=== PATIENT | female | born 2000 | race Caucasian/White ===

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

== ENCOUNTER 2022-01-13 15:21 | Emergency (ER) | payer OTHER ==
[2022-01-13 15:32] VITALS: BP 143/79; PULSE 79; O2SAT 96
[2022-01-13] MEDS ORDERED: TORAdol 30 mg Injection IM ONE (15:51)
--- NOTE | 2022-01-13 16:05 | ERPHSYRPT ---
- History of Present Illness Time Seen by Provider: 01/13/22 15:30 Source: patient Exam Limitations: no limitations Patient Subjective Stated Complaint: pt here for pain to right ankle after falling through floor boards while working on floors, Triage Nursing Assessment: pt alert, resp easy, skin w/d/p.pt has abrasions to anlkle no swelling noted Physician History: Patient is a 21-year-old female presents to our ED with complaints of right ankle pain. Patient states her foot fell between 2 floor [place]. Patient slightly inverted her right foot. Patient's pain is mostly medial aspect of her right ankle. Pain described as an ache that is well localized. No radiation. Pain worse with movement and palpation. Pain improved with rest. Patient denies other injuries. No knee pain hip pain or back pain. No BHT or LOC. Patient took a dose of oral Tylenol prior to arrival. However she is still uncomfortable. Patient voices no other complaint or concerns at this time. Method of Injury: twisted Occurred: just prior to arrival Quality: constant Severity of Pain-Max: moderate Severity of Pain-Current: mild Lower Extremities Pain: ankle: right Modifying Factors: Improves With: movement Associated Symptoms: none Allergies/Adverse Reactions: No Known Drug Allergies Allergy (Verified 01/13/22 15:32) Home Medications: No Reportable Medications [No Reported Medications] 01/13/22 [History] Hx Tetanus, Diphtheria Vaccination/Date Given: Yes Hx Influenza Vaccination/Date Given: No Hx Pneumococcal Vaccination/Date Given: No Immunizations Up to Date: Yes Travel Risk - International Travel Have you traveled outside of the country in past 3 weeks: No - Coronavirus Screening Symptoms: Fever - Vaccine Status Have you recieved a Covid-19 vaccination: No - Review of Systems Constitutional: No Symptoms, No Fever, No Chills Eyes: No Symptoms Ears, Nose, & Throat: No Symptoms Respiratory: No Symptoms, No Cough, No Dyspnea Cardiac: No Symptoms, No Chest Pain, No Edema, No Syncope Abdominal/Gastrointestinal: No Symptoms, No Abdominal Pain, No Nausea, No Vomiting, No Diarrhea Genitourinary Symptoms: No Symptoms, No Dysuria Musculoskeletal: No Symptoms, No Back Pain, No Neck Pain Skin: No Symptoms, No Rash Neurological: No Symptoms, No Dizziness, No Focal Weakness, No Sensory Changes Psychological: No Symptoms Endocrine: No Symptoms Hematologic/Lymphatic: No Symptoms Immunological/Allergic: No Symptoms All Other Systems: Reviewed and Negative - Past Medical History Pertinent Past Medical History: Yes Neurological History: No Pertinent History ENT History: No Pertinent History Cardiac History: Arrhythmia, Other Respiratory History: No Pertinent History Endocrine Medical History: No Pertinent History Musculoskeletal History: No Pertinent History GI Medical History: No Pertinent History History: No Pertinent History Psycho-Social History: No Pertinent History Female Reproductive Disorders: No Pertinent History Other Medical History: atrial septal defect. 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 - Past Surgical History Past Surgical History: Yes Neuro Surgical History: No Pertinent History Cardiac: Cardiac Catheterization Respiratory: Other Gastrointestinal: Appendectomy Genitourinary: No Pertinent History Musculoskeletal: No Pertinent History Female Surgical History: Section Other Surgical History: nov 28--put in a device - Social History Smoking Status: Never smoker Exposure to second hand smoke: No Alcohol Use: None Drug Use: none Patient Lives Alone: No Significant Family History: no pertinent family hx - Female History Hx Last Menstrual Period: 7 months Hx Now: No - Nursing Vital Signs Nursing Vital Signs: Initial Vital Signs Temperature 97.0 F 01/13/22 15:27 Pulse Rate 79 01/13/22 15:27 Respiratory Rate 18 01/13/22 15:27 Blood Pressure 143/79 01/13/22 15:27 O2 Sat by Pulse Oximetry 96 01/13/22 15:27 Pain Scale Pain Intensity 8 - Physical Exam General Appearance: no apparent distress, alert Eyes, Ears, Nose, Throat Exam: moist mucous membranes Neck Exam: non-tender, supple Cardiovascular/Respiratory Exam: chest non-tender, normal breath sounds, regular rate/rhythm, no respiratory distress Gastrointestinal/Abdominal Exam: non-tender, guarding Back Exam: normal inspection, No vertebral tenderness Hips Exam: bilateral: non-tender, normal inspection, normal range of motion, no evidence of injury Legs Exam: bilateral leg: non-tender, normal inspection, normal range of motion, no evidence of injury Knees Exam: bilateral knee: non-tender, normal inspection, normal range of motion, no evidence of injury Ankle Exam: right ankle: pain, soft tissue tenderness, swelling, other (Superficial abrasion medial aspect left ankle. Tenderness along the Achilles tendon however negative Maxwell sign indicates intact Achilles tendon. Right lower extremity is neurovascular tact distally. Compartments are soft. Cap refill less than 2 seconds.), left ankle: non-tender, normal inspection, normal range of motion, no evidence of injury Foot Exam: bilateral foot: non-tender, normal inspection, normal range of motion, no evidence of injury Neuro/Tendon Exam: normal sensation, normal motor functions Mental Status Exam: alert, 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, cooperative Skin Exam: normal color, warm, dry SpO2 Interpretation: normal SpO2: 96 O2 Delivery: Room Air - Course Nursing assessment & vital signs reviewed: Yes - Radiology Exams Ankle X-ray Interpretation: Interpreted by me (No fractures or dislocations. Mild soft tissue swelling just proximal to the medial malleolus.) Ordered Tests: Active Orders 24 hr Category Date Time Status ANKLE (2V) Stat Exams 01/13/22 15:44 Taken Medication Summary Generic Name Dose Route Start Last Admin Trade Name Freq PRN Reason Stop Dose Admin Ketorolac Tromethamine 30 mg 01/13/22 15:51 Ketorolac Tromethamine 30 Mg/Ml Inj IM 01/13/22 15:52 STAT ONE - Progress Progress: improved Progress Note: Patient reassessed. She feels much better. Patient received Toradol for pain control. Patient received bilateral axillary crutches and an Dorian wrap. X-rays negative for fracture dislocation. Mild soft tissue swelling medial aspect of ankle. Patient agrees to follow-up with primary care doctor within 48 hours for evaluation. Patient understands that x-ray is not perfect. If pain and function do not improve in a week's time patient will require further imaging studies possible MRI. Portions of this note were created with voice recognition technology. There may be grammatical, spelling, punctuation or sound alike errors 01/13/22 16:13 Counseled pt/family regarding: diagnosis, need for follow-up, rad results - Departure Departure Disposition: Home Clinical Impression: Achilles tendon sprain, Skin abrasion, Ankle sprain Condition: Stable Critical Care Time: No Referrals: PHYLLIS MACIEL MD [Primary Care Provider] - Follow up/PCP as directed Additional Instructions: Discharge/Care Plan JADA BURRIS RASTA was seen on 01/13/22 in the Emergency Room. The patient was counseled regarding Diagnosis,Lab results, Imaging studies, need for follow up and when to return to the Emergency Room. Prescriptions given: Discharge Note I have spoken with the patient and/or caregivers. I have explained the patient's condition, diagnosis and treatment plan based on the information available to me at this time. I have answered the patient's and/or caregiver's questions and addressed any concerns. The patient and/or caregivers have as good understanding of the patient's diagnosis, condition and treatment plan as can be expected at this point. The vital signs have been stable. The patient's condition is stable and appropriate for discharge from the emergency department. The patient will pursue further outpatient evaluation with the primary care physician or other designated or consulting physician as outlined in the discharge instructions. The patient and/or caregivers are agreeable to this plan of care and follow-up instructions have been explained in detail. The patient and/or caregivers have received these instruction. The patient/and or caregivers are aware that any significant change in condition or worsening of symptoms should prompt an immediate return to this or the closest emergency department or call 911.
[2022-01-13] MEDS ORDERED: TORAdol 30 mg Injection ONE (16:06)
--- NOTE | 2022-01-13 16:18 | XRAY ---
Indication: Pain following fall. Comparison: None 2 view right ankle demonstrates normal bones, articulation, and soft tissues.
== END 2022-01-13 17:03 | disposition home or self-care (01) ==
LOC: ED 15:21
DX: S93.401A Sprain of unspecified ligament of right ankle, initial encounter (principal); S86.011A Strain of right Achilles tendon, initial encounter; W13.3XXA Fall through floor, initial encounter; Y93.H3 Activity, building and construction; M25.571 Pain in right ankle and joints of right foot
CPT/HCPCS: 73600; 96372; 99284; J1885

== ENCOUNTER 2022-05-29 19:22 | Emergency (ER) | payer OTHER ==
[2022-05-29] MEDS ORDERED: Sodium Chloride 0.9% 1000 ML 1,000 ML IV STA ×2 (20:07→20:54)
[2022-05-29] MEDS ORDERED: TORAdol 30 mg Injection IV ONE (20:08)
[2022-05-29] MEDS ORDERED: Sodium Chloride 0.9% 1000 ML 1,000 ML ONE ×2 (20:14→20:55)
[2022-05-29] MEDS ORDERED: TORAdol 30 mg Injection ONE (20:14)
[2022-05-29 20:32] LABS: Absolute Neutrophil Ct (ANC) 2.47 x10^3/uL (1.4-6.9); Basophil (Absolute #) 0.01 x10^3/uL (0-0.4); Eosinophil (Absolute #) 0 x10^3/uL (0-0.5); Hematocrit 41.6 % (35-47); Hemoglobin 13.9 g/dL (12.0-16.0); Lymphocyte (Absolute #) 0.26 x10^3/uL (1.0-4.6); Lymphocytes % 8.8 % (24.0-44.0); Mean Cell Volume 87.2 fL (78-100); Mean Corpuscular Hemoglobin 29.1 pg (26-32); Mean Corpuscular Hgb Concent. 33.4 g/dL (32-36); Mean Platelet Volume 11.2 fL (7.5-11.0); Monocyte (Absolute #) 0.22 x10^3/uL (0.0-1.3); Monocytes % 7.4 % (0.0-12.0); Neutrophil % 83.2 % (36.0-66.0); Platelet Count 243 x10^3/uL (150-450); Red Blood Count 4.77 x10^6/uL (4.1-5.4); Red Cell Distribution Width 13.4 % (11.5-14.0)
[2022-05-29 20:43] LABS: Epithelial Cells RARE /HPF (FEW); Mucus SLIGHT /HPF (NEGATIVE); RBC 0-2 /HPF (0-2); WBC 0-2 /HPF (0-5)
[2022-05-29 20:45] LABS: Appearance CLEAR (CLEAR); Bilirubin SMALL (NEGATIVE); Dipstick done @ ? MAIN LAB; Glucose 100 mg/dL (NEGATIVE); Ketones SMALL-15 (NEGATIVE); Nitrite NEGATIVE (NEGATIVE); Protein,Urine Dip NEGATIVE (Negative); RBC NEGATIVE Ery/ul (0-5); Urobilinogen >=8.0 mg/dL (0-1)
[2022-05-29 20:47] LABS: Urine Cultured Indicated? NO
[2022-05-29 20:48] LABS: ALBUMIN 4.2 g/dL (3.5-5.0); ALKALINE PHOSPHATASE 67 U/L (38-126); ANION GAP 12.9 MEQ/L (5-15); BLOOD UREA NITROGEN 8 mg/dL (7-17); CHLORIDE 103 mmol/L (98-107); Carbon Dioxide 21 mmol/L (22-30); Creatinine 1 0.79 mg/dL (0.52-1.04); EST GLOMERULAR FILTRATION RATE > 60.0 ML/MIN; Glucose 102 mg/dL (74-106); Potassium 3.4 mmol/L (3.5-5.1); SGOT/AST 24 U/L (14-36); SGPT/ALT 19 U/L (0-35); SODIUM 134 mmol/L (137-145); Total Protein 7.4 g/dL (6.3-8.2)
[2022-05-29] MEDS ORDERED: TYLENOL 325 MG PO STA (20:54)
[2022-05-29] MEDS ORDERED: TYLENOL 325 MG ONE (20:55)
[2022-05-29 21:09] LABS: INFLUENZA A NEGATIVE (NEGATIVE); INFLUENZA B NEGATIVE (NEGATIVE); RESPIRATORY SYNCTIAL VIRUS NEGATIVE (Negative); SARS-CoV-2 Xpert Express NEGATIVE (NEGATIVE)
--- NOTE | 2022-05-29 22:28 | ERPHSYRPT ---
- History of Present Illness Time Seen by Provider: 05/29/22 19:32 Source: patient Exam Limitations: no limitations Patient Subjective Stated Complaint: pt states " We got home from [place] today and I started running a fever around 2pm. My headache and body aches started a little later. I took a home COVID test today and it was negative." Triage Nursing Assessment: Pt ambulatory to bed by self, pt alert and oriented x3, pt c/o fever, body ache, headache that started around 1400. pt took tylenol 30 mins prior to arrival, pt's current temp is 100.8, pt currently has UTI which she is taking bactrim for, pt tachycardiac during triage, pt rating headache 08/02 Physician History: 22 years old female presented in the ER with chief complaint of fever and headache. Patient reports she recently returned from [place] and started to have headache yesterday, continuous, moderate to severe sharp throbbing all over and having some pain in the neck and this afternoon started to have fever with a T-max of 101.2 earlier today, took Tylenol and is better now. Has nausea but no vomiting. Denies chest chest pain palpitations or shortness of breath. No abdominal pain. No sore throat runny nose or congestion. Denies any known sick contact. Did home COVID-19 test and is negative. Denies focal numbness tingling weakness or visual disturbance. 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 Associated Symptoms: headache, muscle aches, nausea/vomiting, No abdominal pain, No chest pain, No confusion, No cough, No diaphoresis, No rash, No rhinorrhea, No shortness of breath, No sore throat, No stiff neck, No syncope, No weakness Allergies/Adverse Reactions: No Known Drug Allergies Allergy (Verified 05/29/22 19:27) Hx Tetanus, Diphtheria Vaccination/Date Given: Yes Hx Influenza Vaccination/Date Given: No Hx Pneumococcal Vaccination/Date Given: No Immunizations Up to Date: Yes Travel Risk - International Travel Have you traveled outside of the country in past 3 weeks: No - Coronavirus Screening Are you exhibiting any of the following symptoms?: Yes Symptoms: Fever, Headaches/Body Aches/Fatigue Close contact with a COVID-19 positive Pt in past 14-21 Days: No - Vaccine Status Have you recieved a Covid-19 vaccination: No - Review of Systems Constitutional: Fever, Chills, Fatigue, Weakness Eyes: No Symptoms Ears, Nose, & Throat: No Symptoms Respiratory: No Symptoms Cardiac: No Symptoms Abdominal/Gastrointestinal: Nausea Genitourinary Symptoms: No Symptoms Musculoskeletal: Neck Pain Skin: No Symptoms Neurological: Headache, No Dizziness, No Focal Weakness Psychological: No Symptoms Endocrine: No Symptoms Hematologic/Lymphatic: No Symptoms Immunological/Allergic: No Symptoms - Past Medical History Pertinent Past Medical History: Yes Neurological History: No Pertinent History ENT History: No Pertinent History Cardiac History: Arrhythmia, Other Respiratory History: No Pertinent History Endocrine Medical History: No Pertinent History Musculoskeletal History: No Pertinent History GI Medical History: No Pertinent History History: No Pertinent History Psycho-Social History: No Pertinent History Female Reproductive Disorders: No Pertinent History Other Medical History: atrial septal defect. 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 - Past Surgical History Past Surgical History: Yes Neuro Surgical History: No Pertinent History Cardiac: Cardiac Catheterization Respiratory: Other Gastrointestinal: Appendectomy Genitourinary: No Pertinent History Musculoskeletal: No Pertinent History Female Surgical History: Section Other Surgical History: nov 28--put in a device - Social History Smoking Status: Never smoker Exposure to second hand smoke: No Alcohol Use: None Drug Use: none Patient Lives Alone: No Significant Family History: no pertinent family hx - Female History Hx Last Menstrual Period: 05/24/2022 Hx Now: No - Nursing Vital Signs Nursing Vital Signs: Initial Vital Signs Temperature 100.8 F 05/29/22 19:29 Pulse Rate 147 H 05/29/22 19:29 Respiratory Rate 18 05/29/22 19:29 Blood Pressure 113/78 05/29/22 19:29 O2 Sat by Pulse Oximetry 97 05/29/22 19:29 Pain Scale Pain Intensity 2 - Physical Exam General Appearance: no apparent distress, alert Eye Exam: PERRL/EOMI, eyes nml inspection ENT Exam: normal ENT inspection, no apparent trauma, hearing grossly normal, TMs normal, pharynx normal Neck Exam: normal inspection, non-tender, supple, full range of motion, No meningismus Respiratory Exam: normal breath sounds, lungs clear Cardiovascular/Chest Exam: normal heart sounds, tachycardia Gastrointestinal/Abdominal Exam: soft, non tender, no distention Extremity Exam: non-tender, normal range of motion Neurologic Exam: alert, 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, 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, 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, normal mood/affect, nml cerebellar function, nml station & gait, sensation nml Skin Exam: normal color SpO2 Interpretation: normal SpO2: 97 O2 Delivery: Room Air Ordered Tests: Active Orders 24 hr Category Date Time 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 Care 05/29/22 20:07 Completed IV Insertion STAT Care 05/29/22 20:07 Completed CHEST 1 VIEW (PORTABLE) Stat Exams 05/29/22 20:07 Completed BLOOD CULTURE Stat Lab 05/29/22 20:27 Received CBC W DIFF Stat Lab 05/29/22 20:27 Completed CMP Stat Lab 05/29/22 20:27 Completed Lactic Acid Stat Lab 05/29/22 20:07 Completed MAG [MAGNESIUM] Stat Lab 05/29/22 20:27 Completed [place] Screen Stat Lab 05/29/22 20:08 Completed PROCALCITONIN Stat Lab 05/29/22 20:27 Completed UA W/RFX CULTURE Stat Lab 05/29/22 20:24 Completed Medication Summary Discontinued Medications Generic Name Dose Route Start Last Admin Trade Name Marisa PRN Reason Stop Dose Admin Acetaminophen 650 mg 05/29/22 20:54 05/29/22 20:56 Acetaminophen 325 Mg Tablet PO 05/29/22 20:55 650 mg STAT STA Administration Acetaminophen Confirm 05/29/22 20:55 Acetaminophen 325 Mg Tablet Administered 05/29/22 20:56 Dose 650 mg .ROUTE .STK-MED ONE Sodium Chloride 1,000 mls @ 999 mls/hr 05/29/22 20:07 05/29/22 21:15 Sodium Chloride 0.9% 1000 Ml IV 05/29/22 21:07 Infused .Q1H1M STA Infusion Sodium Chloride Confirm 05/29/22 20:14 Sodium Chloride 0.9% 1000 Ml Administered 05/29/22 20:15 Dose 1,000 mls @ ud .ROUTE .STK-MED ONE Sodium Chloride 1,000 mls @ 999 mls/hr 05/29/22 20:54 05/29/22 21:57 Sodium Chloride 0.9% 1000 Ml IV 05/29/22 21:54 Infused .Q1H1M STA Infusion Sodium Chloride Confirm 05/29/22 20:55 Sodium Chloride 0.9% 1000 Ml Administered 05/29/22 20:56 Dose 1,000 mls @ ud .ROUTE .STK-MED ONE Ceftriaxone Sodium/Dextrose 1 g in 50 mls @ 100 mls/hr 05/29/22 22:36 05/29/22 23:06 Rocephin 1 Gm-D5w 50 Ml Bag IV 05/29/22 23:05 Infused STAT STA Infusion Ceftriaxone Sodium/Dextrose Confirm 05/29/22 22:37 Rocephin 1 Gm-D5w 50 Ml Bag Administered 05/29/22 22:38 Dose 1 g in 50 mls @ ud IV .STK-MED ONE Ketorolac Tromethamine 30 mg 05/29/22 20:08 05/29/22 20:16 Ketorolac Tromethamine 30 Mg/Ml Inj IV 05/29/22 20:09 30 mg STAT ONE Administration Ketorolac Tromethamine Confirm 05/29/22 20:14 Ketorolac Tromethamine 30 Mg/Ml Inj Administered 05/29/22 20:15 Dose 30 mg .ROUTE .STK-MED ONE Magnesium Sulfate 1 gm 05/29/22 22:46 05/29/22 23:00 Magnesium Sulfate Injection IV 05/29/22 22:47 1 gm ONCE STA Administration Magnesium Sulfate Confirm 05/29/22 22:59 Magnesium Sulfate Injection Administered 05/29/22 23:00 Dose 1 gm .ROUTE .STK-MED ONE Lab/Rad Data: Laboratory Result Diagrams 05/29/22 20:27 05/29/22 20:27 Laboratory Results 05/29/22 05/29/22 05/29/22 Range/Units 21:32 20:27 20:27 WBC (4.0-10.5) x10^3/uL RBC (4.1-5.4) x10^6/uL Hgb (12.0-16.0) g/dL Hct (35-47) % MCV (78-100) fL MCH (26-32) pg MCHC (32-36) g/dL RDW (11.5-14.0) % Plt Count (150-450) x10^3/uL MPV (7.5-11.0) fL Gran % (36.0-66.0) % Immature Gran % (Auto) (0.00-0.4) % Nucleat RBC Rel Count (0.00-0.1) % Eos # (Auto) (0-0.5) x10^3/uL Immature Gran # (Auto) (0.00-0.03) x10^3u/L Absolute Lymphs (auto) (1.0-4.6) x10^3/uL Absolute Monos (auto) (0.0-1.3) x10^3/uL Absolute Nucleated RBC (0.00-0.01) x10^3u/L Lymphocytes % (24.0-44.0) % Monocytes % (0.0-12.0) % Eosinophils % (0.00-5.0) % Basophils % (0.0-0.4) % Absolute Granulocytes (1.4-6.9) x10^3/uL Basophils # (0-0.4) x10^3/uL Sodium (137-145) mmol/L Potassium (3.5-5.1) mmol/L Chloride (98-107) mmol/L Carbon Dioxide (22-30) mmol/L Anion Gap (5-15) MEQ/L BUN (7-17) mg/dL Creatinine (0.52-1.04) mg/dL Estimated GFR ML/MIN Glucose (74-106) mg/dL Lactic Acid (0.4-2.0) Calcium (8.4-10.2) mg/dL Magnesium 1.5 L (1.6-2.3) mg/dL Total Bilirubin (0.2-1.3) mg/dL AST (14-36) U/L ALT (0-35) U/L Alkaline Phosphatase (38-126) U/L Serum Total Protein (6.3-8.2) g/dL Albumin (3.5-5.0) g/dL Procalcitonin 0.155 H (0.030-0.080) ng/mL Urinalys Dipstick Clnc Urine Color (YELLOW) Urine Appearance (CLEAR) Urine pH (5-6) Ur Specific Walton (1.005-1.025) POC Urine Protein Conf (Negative) Urine Ketones (NEGATIVE) Urine Nitrite (NEGATIVE) Urine Bilirubin (NEGATIVE) Urine Urobilinogen (0-1) mg/dL Urine Leukocytes (NEGATIVE) Urine WBC (Auto) (0-5) /HPF Urine RBC (Auto) (0-2) /HPF U Epithel Cells (Auto) (FEW) /HPF Urine Bacteria (Auto) (NEGATIVE) /HPF Urine RBC (0-5) Abhishek/ul Urine Mucus (Auto) (NEGATIVE) /HPF Ur Culture Indicated? Urine Glucose (NEGATIVE) mg/dL Monoscreen (Negative) Influenza Type A Ag (NEGATIVE) Influenza Type B Ag (NEGATIVE) RSV (PCR) (Negative) SARS-CoV-2 (PCR) (NEGATIVE) Group A Strep Antibody NOT DETECTED (NEGATIVE) 05/29/22 05/29/22 05/29/22 Range/Units 20:27 20:27 20:26 WBC 3.0 L (4.0-10.5) x10^3/uL RBC 4.77 (4.1-5.4) x10^6/uL Hgb 13.9 (12.0-16.0) g/dL Hct 41.6 (35-47) % MCV 87.2 (78-100) fL MCH 29.1 (26-32) pg MCHC 33.4 (32-36) g/dL RDW 13.4 (11.5-14.0) % Plt Count 243 (150-450) x10^3/uL MPV 11.2 H (7.5-11.0) fL Gran % 83.2 H (36.0-66.0) % Immature Gran % (Auto) 0.3 (0.00-0.4) % Nucleat RBC Rel Count 0.0 (0.00-0.1) % Eos # (Auto) 0 (0-0.5) x10^3/uL Immature Gran # (Auto) 0.01 (0.00-0.03) x10^3u/L Absolute Lymphs (auto) 0.26 L (1.0-4.6) x10^3/uL Absolute Monos (auto) 0.22 (0.0-1.3) x10^3/uL Absolute Nucleated RBC 0.00 (0.00-0.01) x10^3u/L Lymphocytes % 8.8 L (24.0-44.0) % Monocytes % 7.4 (0.0-12.0) % Eosinophils % 0.0 (0.00-5.0) % Basophils % 0.3 (0.0-0.4) % Absolute Granulocytes 2.47 (1.4-6.9) x10^3/uL Basophils # 0.01 (0-0.4) x10^3/uL Sodium 134 L (137-145) mmol/L Potassium 3.4 L (3.5-5.1) mmol/L Chloride 103 (98-107) mmol/L Carbon Dioxide 21 L (22-30) mmol/L Anion Gap 12.9 (5-15) MEQ/L BUN 8 (7-17) mg/dL Creatinine 0.79 (0.52-1.04) mg/dL Estimated GFR > 60.0 ML/MIN Glucose 102 (74-106) mg/dL Lactic Acid (0.4-2.0) Calcium 9.0 (8.4-10.2) mg/dL Magnesium (1.6-2.3) mg/dL Total Bilirubin 0.80 (0.2-1.3) mg/dL AST 24 (14-36) U/L ALT 19 (0-35) U/L Alkaline Phosphatase 67 (38-126) U/L Serum Total Protein 7.4 (6.3-8.2) g/dL Albumin 4.2 (3.5-5.0) g/dL Procalcitonin (0.030-0.080) ng/mL Urinalys Dipstick Clnc Urine Color (YELLOW) Urine Appearance (CLEAR) Urine pH (5-6) Ur Specific [place] (1.005-1.025) POC Urine Protein Conf (Negative) Urine Ketones (NEGATIVE) Urine Nitrite (NEGATIVE) Urine Bilirubin (NEGATIVE) Urine Urobilinogen (0-1) mg/dL Urine Leukocytes (NEGATIVE) Urine WBC (Auto) (0-5) /HPF Urine RBC (Auto) (0-2) /HPF U Epithel Cells (Auto) (FEW) /HPF Urine Bacteria (Auto) (NEGATIVE) /HPF Urine RBC (0-5) Abhishek/ul Urine Mucus (Auto) (NEGATIVE) /HPF Ur Culture Indicated? Urine Glucose (NEGATIVE) mg/dL Monoscreen (Negative) Influenza Type A Ag NEGATIVE (NEGATIVE) Influenza Type B Ag NEGATIVE (NEGATIVE) RSV (PCR) NEGATIVE (Negative) SARS-CoV-2 (PCR) NEGATIVE (NEGATIVE) Group A Strep Antibody (NEGATIVE) 08/06/22 08/06/22 08/06/22 Range/Units 20:24 20:08 20:07 WBC (4.0-10.5) x10^3/uL RBC (4.1-5.4) x10^6/uL Hgb (12.0-16.0) g/dL Hct (35-47) % MCV (78-100) fL MCH (26-32) pg MCHC (32-36) g/dL RDW (11.5-14.0) % Plt Count (150-450) x10^3/uL MPV (7.5-11.0) fL Gran % (36.0-66.0) % Immature Gran % (Auto) (0.00-0.4) % Nucleat RBC Rel Count (0.00-0.1) % Eos # (Auto) (0-0.5) x10^3/uL Immature Gran # (Auto) (0.00-0.03) x10^3u/L Absolute Lymphs (auto) (1.0-4.6) x10^3/uL Absolute Monos (auto) (0.0-1.3) x10^3/uL Absolute Nucleated RBC (0.00-0.01) x10^3u/L Lymphocytes % (24.0-44.0) % Monocytes % (0.0-12.0) % Eosinophils % (0.00-5.0) % Basophils % (0.0-0.4) % Absolute Granulocytes (1.4-6.9) x10^3/uL Basophils # (0-0.4) x10^3/uL Sodium (137-145) mmol/L Potassium (3.5-5.1) mmol/L Chloride (98-107) mmol/L Carbon Dioxide (22-30) mmol/L Anion Gap (5-15) MEQ/L BUN (7-17) mg/dL Creatinine (0.52-1.04) mg/dL Estimated GFR ML/MIN Glucose (74-106) mg/dL Lactic Acid 1.1 (0.4-2.0) Calcium (8.4-10.2) mg/dL Magnesium (1.6-2.3) mg/dL Total Bilirubin (0.2-1.3) mg/dL AST (14-36) U/L ALT (0-35) U/L Alkaline Phosphatase (38-126) U/L Serum Total Protein (6.3-8.2) g/dL Albumin (3.5-5.0) g/dL Procalcitonin (0.030-0.080) ng/mL Urinalys Dipstick Clnc MAIN LAB Urine Color YELLOW (YELLOW) Urine Appearance CLEAR (CLEAR) Urine pH 8.0 (5-6) Ur Specific [place] 1.020 (1.005-1.025) POC Urine Protein Conf NEGATIVE (Negative) Urine Ketones SMALL-15 (NEGATIVE) Urine Nitrite NEGATIVE (NEGATIVE) Urine Bilirubin SMALL (NEGATIVE) Urine Urobilinogen >=8.0 (0-1) mg/dL Urine Leukocytes NEGATIVE (NEGATIVE) Urine WBC (Auto) 0-2 (0-5) /HPF Urine RBC (Auto) 0-2 (0-2) /HPF U Epithel Cells (Auto) RARE (FEW) /HPF Urine Bacteria (Auto) NONE (NEGATIVE) /HPF Urine RBC NEGATIVE (0-5) Abhishek/ul Urine Mucus (Auto) SLIGHT (NEGATIVE) /HPF Ur Culture Indicated? NO Urine Glucose 100 (NEGATIVE) mg/dL Monoscreen NEGATIVE (Negative) Influenza Type A Ag (NEGATIVE) Influenza Type B Ag (NEGATIVE) RSV (PCR) (Negative) SARS-CoV-2 (PCR) (NEGATIVE) Group A Strep Antibody (NEGATIVE) - Progress Progress: improved, re-examined Progress Note: 05/29/22 22:40 22 years old is evaluated for headache and fever with nausea. She is given fluid bolus x2 and her heart rate improved to mid 90s. Her headache is co mpletely resolved with Tylenol and Toradol. Does not have any nuchal rigidity. Chest x-ray negative for any acute cardiopulmonary findings reviewed by me, official report is pending. Has a white count of 3, chemistry profile grossly unremarkable except for mildly low magnesium and potassium for which she is getting replacement. Has elevated procalcitonin of 0.12. No UTI. No obvious source of infection available. Blood cultures are obtained. Has negative strep flu and COVID. Given a dose of Rocephin. Discussed with patient about possible meningitis and spinal tap which she refused as she had a spinal headache in the past with spinal anesthesia. She does understand the risk of not doing it and wants to try antibiotics first. We will continue with Omnicef to go home as patient is complaining of sore throat as well. Discussed signs symptoms of worsening needing return to ER which she seems understanding. 05/29/22 22:47 Counseled pt/family regarding: lab results, diagnosis, need for follow-up, rad results - Departure Departure Disposition: Home Clinical Impression: Fever, unknown origin, Sepsis Condition: Stable Critical Care Time: No Referrals: PHYLLIS MACIEL MD [Primary Care Provider] - Follow up/PCP as directed (In 2 days for reevaluation) Instructions: Fever, Adult (DC) Additional Instructions: Take Tylenol/ibuprofen alternate for fever/headache/body aches every 4 hours as needed. Drink plenty of fluids to keep yourself well-hydrated. Follow-up with primary care physician for reevaluation. Return to ER for persistent high-grade fever, difficulty movements of neck, intractable headache, nausea vomiting, visual disturbance etc. Prescriptions: Cefdinir [Omnicef 300 mg] 300 mg PO BID 7 Days #14 cap
[2022-05-29] MEDS ORDERED: ROCEPHIN 1 Gm-D5w 50 ml Bag** 1 G/50 ML IVPB IV STA (22:36)
[2022-05-29] MEDS ORDERED: ROCEPHIN 1 Gm-D5w 50 ml Bag** 1 G/50 ML IVPB IV ONE (22:37)
[2022-05-29] MEDS ORDERED: Magnesium Sulfate 1 GM/2 ML VIAL IV STA (22:46)
[2022-05-29] MEDS ORDERED: Magnesium Sulfate 1 GM/2 ML VIAL ONE (22:59)
[2022-05-29 23:07] VITALS: BP 107/67; PULSE 96
--- NOTE | 2022-05-30 07:25 | XRAY ---
Indication: Fever. Comparison: July 11, 2021 Portable chest again demonstrates normal heart, lungs, and bony thorax with incidental atrial septal repair.
[2022-05-30 20:50] VITALS: O2SAT 97
== END 2022-05-29 23:14 | disposition home or self-care (01) ==
LOC: ED 19:22
DX: A41.9 Sepsis, unspecified organism (principal); R50.9 Fever, unspecified; R51.9 Headache, unspecified; M54.2 Cervicalgia; R11.0 Nausea; Z28.310 Unvaccinated for COVID-19
CPT/HCPCS: 0241U; 36000; 36415; 71045; 80053; 81015; 83605; 83735; 84145; 85025; 86308; 87040; 87651; 93041; 96360; 96365; 96374; 96375; 99284; J0696; J1885; J3475; A9270-GY

== ENCOUNTER 2022-06-02 14:28 | Inpatient (IN) | payer OTHER ==
[2022-06-02] MEDS ORDERED: Sodium Chloride 0.9% 1000 ML 1,000 ML IV STA (14:46)
[2022-06-02 15:27] LABS: Hematocrit 44.4 % (35-47); Hemoglobin 14.1 g/dL (12.0-16.0); Mean Cell Volume 89.5 fL (78-100); Mean Corpuscular Hemoglobin 28.4 pg (26-32); Mean Corpuscular Hgb Concent. 31.8 g/dL (32-36); Mean Platelet Volume 11.5 fL (7.5-11.0); Platelet Count 84 x10^3/uL (150-450); Red Blood Count 4.96 x10^6/uL (4.1-5.4); White Blood Count 2.5 x10^3/uL (4.0-10.5)
[2022-06-02 15:33] LABS: INFLUENZA A NEGATIVE (NEGATIVE); INFLUENZA B NEGATIVE (NEGATIVE); RESPIRATORY SYNCTIAL VIRUS NEGATIVE (Negative); SARS-CoV-2 Xpert Express NEGATIVE (NEGATIVE)
[2022-06-02] MEDS: Sodium Chloride 0.9% 1000 ML 1,000 ML IV SCH (15:41)
[2022-06-02] MEDS: Zofran 4 MG/2 ML VIAL IV PRN (15:41)
[2022-06-02] MEDS: Hydromorphone 1 mg/ml Injection IV PRN (15:41)
[2022-06-02 15:47] LABS: BAND 6 % (0.0-2.0); Lymphocytes 11 % (24-44); Platelet Estimate DECREASED (NORMAL); Total Cells Counted 100; Toxic Granulation 1+
[2022-06-02 15:53] LABS: ALKALINE PHOSPHATASE 94 U/L (38-126); ANION GAP 13.7 MEQ/L (5-15); BLOOD UREA NITROGEN 15 mg/dL (7-17); CHLORIDE 100 mmol/L (98-107); Calcium 8.4 mg/dL (8.4-10.2); Carbon Dioxide 25 mmol/L (22-30); Creatinine 1 0.78 mg/dL (0.52-1.04); EST GLOMERULAR FILTRATION RATE > 60.0 ML/MIN; Glucose 76 mg/dL (74-106); Potassium 3.1 mmol/L (3.5-5.1); SGOT/AST 235 U/L (14-36); SGPT/ALT 176 U/L (0-35); SODIUM 135 mmol/L (137-145)
--- NOTE | 2022-06-02 16:23 | XRAY ---
Indication: Headache, vomiting, and fever. No known injury. Multiple contiguous axial images obtained through the head without contrast. Comparison: September 24, 2013 Normal appearing brain parenchyma, ventricles, and bony calvarium. Visualized paranasal sinuses and mastoid air cells are clear. Impression: Continued normal CT head without contrast exam.
[2022-06-02] MEDS ORDERED: Hydromorphone 1 mg/ml Injection IV ONE (17:32)
[2022-06-02] MEDS: Compazine 10 MG/2 ML IV PRN (18:35)
[2022-06-03] MEDS: TYLENOL 325 MG PO PRN ×4 (00:12→23:03)
[2022-06-03] MEDS: Sodium Chloride 0.9% 1000 ML 1,000 ML IV SCH ×2 (00:53→07:58)
[2022-06-03 06:30] LABS: Bacteria RARE /HPF (NEGATIVE)
[2022-06-03 06:31] LABS: Appearance CLEAR (CLEAR); Bilirubin SMALL (NEGATIVE); Dipstick done @ ? MAIN LAB; Glucose NEGATIVE (NEGATIVE); Ketones LARGE-80 (NEGATIVE); Nitrite NEGATIVE (NEGATIVE); Protein,Urine Dip 30 (Negative); RBC NEGATIVE Ery/ul (0-5); Specific Gravity 1.025 (1.005-1.025); Urobilinogen 1 mg/dL (0-1)
[2022-06-03 06:32] LABS: Urine Cultured Indicated? YES
[2022-06-03] MEDS: Hydromorphone 1 mg/ml Injection IV PRN ×4 (07:56→23:07)
[2022-06-03] MEDS: Compazine 10 MG/2 ML IV PRN ×2 (07:56→14:00)
[2022-06-03 07:58] LABS: Hematocrit 36.1 % (35-47); Hemoglobin 11.6 g/dL (12.0-16.0); Mean Corpuscular Hemoglobin 28.3 pg (26-32); Mean Corpuscular Hgb Concent. 32.1 g/dL (32-36); Platelet Count 69 x10^3/uL (150-450); Red Cell Distribution Width 14.2 % (11.5-14.0); White Blood Count 3.3 x10^3/uL (4.0-10.5)
[2022-06-03] MEDS ORDERED: Sodium Chloride 0.9% 1000 ML 1,000 ML IV STA (08:18)
[2022-06-03 08:19] LABS: ALBUMIN 2.5 g/dL (3.5-5.0); ALKALINE PHOSPHATASE 74 U/L (38-126); ANION GAP 11.4 MEQ/L (5-15); BLOOD UREA NITROGEN 10 mg/dL (7-17); CHLORIDE 103 mmol/L (98-107); Calcium 7.2 mg/dL (8.4-10.2); Carbon Dioxide 23 mmol/L (22-30); EST GLOMERULAR FILTRATION RATE > 60.0 ML/MIN; Glucose 84 mg/dL (74-106); Potassium 3.1 mmol/L (3.5-5.1); SGOT/AST 285 U/L (14-36); SGPT/ALT 165 U/L (0-35); SODIUM 135 mmol/L (137-145); Total Protein 5.2 g/dL (6.3-8.2)
--- NOTE | 2022-06-03 08:24 | PCM.NOTE ---
Date and Time: 06/03/22820 Subjective Assessment: patient c/o headache and left ear pain, vomiting is improved. pain was well controlled yesterday with dilaudid, didn't have any overnight. Objective Exam General Appearance: mild distress Neurologic Exam: alert, cooperative Respiratory Exam: normal breath sounds, lungs clear, No respiratory distress Cardiovascular Exam: regular rate/rhythm, normal heart sounds Gastrointestinal/Abdomen Exam: soft, No tenderness, No mass Extremity Exam: normal inspection, normal range of motion OBJECTIVE DATA Vital Signs: Vital Signs - 24 hr Temp Pulse Resp BP Pulse Ox 06/03/22 07:12 99.1 F 113 H 16 99/58 97 06/03/22 04:00 97.8 F 110 H 20 107/55 06/03/22 00:00 104.0 F 139 H 18 107/55 95 06/02/22 20:00 101.4 F 138 H 19 118/59 96 06/02/22 19:42 87 L 06/02/22 15:01 100.2 F 132 H 18 106/60 96 Pain Assessment - Last Documented Pain Intensity 8 Pain Scale Used 0-10 Pain Scale Intake and Output: Intake & Output 05/31/22 06/01/22 06/02/22 06/03/22 11:59 11:59 11:59 11:59 Intake Total 3250 Balance 3250 Weight 78.4 kg Lab Results: Lab Results-Last 24 Hours 06/02/22 06/02/22 06/02/22 Range/Units 06:31 14:55 15:22 WBC 2.5 L (4.0-10.5) x10^3/uL RBC 4.96 (4.1-5.4) x10^6/uL Hgb 14.1 (12.0-16.0) g/dL Hct 44.4 (35-47) % MCV 89.5 (78-100) fL MCH 28.4 (26-32) pg MCHC 31.8 L (32-36) g/dL RDW 14.0 (11.5-14.0) % Plt Count 84 L (150-450) x10^3/uL MPV 11.5 H (7.5-11.0) fL Segmented Neutrophils 83 H (36.0-66.0) % Band Neutrophils 6 H (0.0-2.0) % Lymphocytes (Manual) 11 L (24-44) % Toxic Granulation 1+ Platelet Estimate DECREASED (NORMAL) RBC Morphology NORMAL Sodium (137-145) mmol/L Potassium (3.5-5.1) mmol/L Chloride (98-107) mmol/L Carbon Dioxide (22-30) mmol/L Anion Gap (5-15) MEQ/L BUN (7-17) mg/dL Creatinine (0.52-1.04) mg/dL Estimated GFR ML/MIN Glucose (74-106) mg/dL Calcium (8.4-10.2) mg/dL Total Bilirubin (0.2-1.3) mg/dL AST (14-36) U/L ALT (0-35) U/L Alkaline Phosphatase (38-126) U/L Serum Total Protein (6.3-8.2) g/dL Albumin (3.5-5.0) g/dL Urinalys Dipstick Clnc MAIN LAB Urine Color YELLOW (YELLOW) Urine Appearance CLEAR (CLEAR) Urine pH 6.0 (5-6) Ur Specific [place] 1.025 (1.005-1.025) POC Urine Protein Conf 30 (Negative) Urine Ketones LARGE-80 (NEGATIVE) Urine Nitrite NEGATIVE (NEGATIVE) Urine Bilirubin SMALL (NEGATIVE) Urine Urobilinogen 1 (0-1) mg/dL Urine Leukocytes SMALL (NEGATIVE) Urine WBC (Auto) 16-25 (0-5) /HPF Urine RBC (Auto) 3-5 (0-2) /HPF U Epithel Cells (Auto) NONE (FEW) /HPF Urine Bacteria (Auto) RARE (NEGATIVE) /HPF Urine RBC NEGATIVE (0-5) Abhishek/ul Ur Culture Indicated? YES Urine Glucose NEGATIVE (NEGATIVE) mg/dL Influenza Type A Ag NEGATIVE (NEGATIVE) Influenza Type B Ag NEGATIVE (NEGATIVE) RSV (PCR) NEGATIVE (Negative) SARS-CoV-2 (PCR) NEGATIVE (NEGATIVE) 06/02/22 06/03/22 Range/Units 15:22 05:14 WBC 3.3 L (4.0-10.5) x10^3/uL RBC 4.10 (4.1-5.4) x10^6/uL Hgb 11.6 L (12.0-16.0) g/dL Hct 36.1 (35-47) % MCV 88.0 (78-100) fL MCH 28.3 (26-32) pg MCHC 32.1 (32-36) g/dL RDW 14.2 H (11.5-14.0) % Plt Count 69 L (150-450) x10^3/uL MPV 12.0 H (7.5-11.0) fL Segmented Neutrophils (36.0-66.0) % Band Neutrophils (0.0-2.0) % Lymphocytes (Manual) (24-44) % Toxic Granulation Platelet Estimate (NORMAL) RBC Morphology Sodium 135 L (137-145) mmol/L Potassium 3.1 L (3.5-5.1) mmol/L Chloride 100 (98-107) mmol/L Carbon Dioxide 25 (22-30) mmol/L Anion Gap 13.7 (5-15) MEQ/L BUN 15 (7-17) mg/dL Creatinine 0.78 (0.52-1.04) mg/dL Estimated GFR > 60.0 ML/MIN Glucose 76 (74-106) mg/dL Calcium 8.4 (8.4-10.2) mg/dL Total Bilirubin 1.70 H (0.2-1.3) mg/dL AST 235 H (14-36) U/L ALT 176 H (0-35) U/L Alkaline Phosphatase 94 (38-126) U/L Serum Total Protein 7.0 (6.3-8.2) g/dL Albumin 4.0 (3.5-5.0) g/dL Urinalys Dipstick Clnc Urine Color (YELLOW) Urine Appearance (CLEAR) Urine pH (5-6) Ur Specific [place] (1.005-1.025) POC Urine Protein Conf (Negative) Urine Ketones (NEGATIVE) Urine Nitrite (NEGATIVE) Urine Bilirubin (NEGATIVE) Urine Urobilinogen (0-1) mg/dL Urine Leukocytes (NEGATIVE) Urine WBC (Auto) (0-5) /HPF Urine RBC (Auto) (0-2) /HPF U Epithel Cells (Auto) (FEW) /HPF Urine Bacteria (Auto) (NEGATIVE) /HPF Urine RBC (0-5) Abhishek/ul Ur Culture Indicated? Urine Glucose (NEGATIVE) mg/dL Influenza Type A Ag (NEGATIVE) Influenza Type B Ag (NEGATIVE) RSV (PCR) (Negative) SARS-CoV-2 (PCR) (NEGATIVE) Radiology Exams: Radiology Procedures Category Date Time Status ABDOMEN AND PELVIS W/0 CONTRAS [CT] Routine Exams 06/02/22 17:31 Taken HEAD WITHOUT CONTRAST [CT] Stat Exams 06/02/22 14:48 Completed Assessment/Plan (1) Headache Current Visit: Yes Status: Acute Assessment & Plan: likely from hypovolemia, large ketones still present in u/a done this am after fluids, will give another 1L bolus and change fluids to K containing Code(s): R51.9 - HEADACHE, UNSPECIFIED (2) Fever, unknown origin Current Visit: No Status: Acute Assessment & Plan: add rocephin emperically, with leukopenia and thrombocytopenia in the context of elevated transaminases I strongly suspect a viral etiology, will await hepatitis profile and ebv/cmv titers. continue supportive care. (3) Nausea & vomiting Current Visit: No Status: Acute Code(s): R11.2 - NAUSEA WITH VOMITING, UNSPECIFIED
[2022-06-03] MEDS: Sodium Chloride 0.9% W/ 20 mEq KCl/LITER 1,000 ML IV SCH ×3 (08:29→20:32)
--- NOTE | 2022-06-03 08:37 | XRAY ---
Indication: Abdomen pain. Fever and vomiting. Multiple contiguous axial images obtained through the abdomen and pelvis without contrast. Comparison: None Lung bases demonstrate mild dependent atelectasis. No infiltrate or effusion. Heart not enlarged. Noncontrasted stomach and bowel loops appear nonobstructed. Appendectomy reported. 2.7 cm right ovary cyst. No free fluid/air. Diffuse fatty liver. Remaining liver, gallbladder, pancreas, spleen, adrenal glands, kidneys, ureters, bladder, uterus, and aorta are unremarkable for noncontrast exam. Osseous structures intact. No ventral or inguinal hernias. Impression: 1. Fatty liver and 2.7 cm dominant right ovary cyst. 2. Remaining CT abdomen/pelvis without contrast exam is negative.
[2022-06-03 08:58] LABS: Absolute Neutrophil Ct (ANC) 2.06 x10^3/uL (1.4-6.9); Basophil (Absolute #) 0.02 x10^3/uL (0-0.4); Eosinophil (Absolute #) 0 x10^3/uL (0-0.5); Hematocrit 36.4 % (35-47); Hemoglobin 11.9 g/dL (12.0-16.0); Lymphocyte (Absolute #) 0.57 x10^3/uL (1.0-4.6); Mean Cell Volume 88.3 fL (78-100); Mean Corpuscular Hemoglobin 28.9 pg (26-32); Mean Corpuscular Hgb Concent. 32.7 g/dL (32-36); Mean Platelet Volume 11.2 fL (7.5-11.0); Monocyte (Absolute #) 0.18 x10^3/uL (0.0-1.3); Monocytes % 6.3 % (0.0-12.0); Neutrophil % 72.3 % (36.0-66.0); Platelet Count 67 x10^3/uL (150-450); Red Blood Count 4.12 x10^6/uL (4.1-5.4); Red Cell Distribution Width 14.2 % (11.5-14.0); White Blood Count 2.9 x10^3/uL (4.0-10.5)
[2022-06-03 09:38] LABS: BAND 9 % (0.0-2.0); Lymphocytes 13 % (24-44); Total Cells Counted 100
[2022-06-03 09:39] LABS: ANISOCYTOSIS 1+; Platelet Estimate DECREASED (NORMAL); Toxic Granulation 1+
[2022-06-03] MEDS ORDERED: ROCEPHIN 1 Gm-D5w 50 ml Bag** 1 G/50 ML IVPB IV SCH (10:00)
[2022-06-03] MEDS: Tessalon Perles 100 MG PO PRN ×2 (11:00→20:04)
[2022-06-03] MEDS: Zofran 4 MG/2 ML VIAL IV PRN (11:42)
--- NOTE | 2022-06-03 12:14 | XRAY ---
Indication: Fever and cough 4 days. Comparison: May 29, 2022 PA/lateral chest demonstrates new diffuse left lung consolidating and nonconsolidating airspace disease. Also new bilateral interstitial edema and tiny bibasilar effusions without cardiomegaly.
[2022-06-03] MEDS: Zithromax 500 MG/ 250 ML NaCl Premix 500 MG/250 ML IVPB IV SCH (14:35)
[2022-06-04] MEDS: Sodium Chloride 0.9% W/ 20 mEq KCl/LITER 1,000 ML IV SCH (02:56)
[2022-06-04 04:12] LABS: INFLUENZA A NEGATIVE (NEGATIVE); INFLUENZA B NEGATIVE (NEGATIVE); RESPIRATORY SYNCTIAL VIRUS NEGATIVE (Negative); SARS-CoV-2 Xpert Express NEGATIVE (NEGATIVE)
[2022-06-04] MEDS: TYLENOL 325 MG PO PRN ×2 (04:20→10:25)
[2022-06-04 04:31] LABS: ALBUMIN 2.5 g/dL (3.5-5.0); ALKALINE PHOSPHATASE 127 U/L (38-126); ANION GAP 7.1 MEQ/L (5-15); BLOOD UREA NITROGEN 5 mg/dL (7-17); CHLORIDE 102 mmol/L (98-107); Calcium 7.2 mg/dL (8.4-10.2); Carbon Dioxide 28 mmol/L (22-30); Creatinine 1 0.62 mg/dL (0.52-1.04); EST GLOMERULAR FILTRATION RATE > 60.0 ML/MIN; Glucose 105 mg/dL (74-106); MAGNESIUM 1.6 mg/dL (1.6-2.3); Potassium 3.7 mmol/L (3.5-5.1); SGOT/AST 256 U/L (14-36); SGPT/ALT 162 U/L (0-35); SODIUM 134 mmol/L (137-145); Total Protein 5.2 g/dL (6.3-8.2)
[2022-06-04 05:01] LABS: Hematocrit 37.1 % (35-47); Hemoglobin 11.9 g/dL (12.0-16.0); Mean Cell Volume 88.3 fL (78-100); Mean Corpuscular Hemoglobin 28.3 pg (26-32); Mean Corpuscular Hgb Concent. 32.1 g/dL (32-36); Mean Platelet Volume 11.6 fL (7.5-11.0); Platelet Count 71 x10^3/uL (150-450); Red Cell Distribution Width 14.6 % (11.5-14.0); White Blood Count 4.2 x10^3/uL (4.0-10.5)
[2022-06-04 06:41] LABS: BAND 2 % (0.0-2.0); Lymphocytes 26 % (24-44); Monocyte 2 % (0.0-12.0); Platelet Estimate DECREASED (NORMAL); Total Cells Counted 100
[2022-06-04 06:42] LABS: ANISOCYTOSIS 1+; Toxic Granulation 1+
[2022-06-04] MEDS: Compazine 10 MG/2 ML IV PRN (06:42)
[2022-06-04] MEDS: Hydromorphone 1 mg/ml Injection IV PRN (06:42)
[2022-06-04 07:08] LABS: HBsAg Screen Negative (Negative); HCV Ab <0.1 s/co ratio (0.0-0.9); Hep A Ab, IgM Negative (Negative); Hep B Core Ab, IgM Negative (Negative)
[2022-06-04 07:58] LABS: Cytomegalovirus (CMV) Ab, IgG <0.60 U/mL (0.00-0.59); Cytomegalovirus (CMV) Ab, IgM <30.0 AU/mL (0.0-29.9)
[2022-06-04] MEDS ORDERED: NORCO 5/325 MG PO PRN (08:07)
[2022-06-04] MEDS ORDERED: Compazine 10 MG/2 ML IV PRN (08:07)
--- NOTE | 2022-06-04 08:13 | PCM.NOTE ---
Date and Time: 06/04/22810 Subjective Assessment: patient has increasing oxygen requirements overnight, she remains febrile but reports she feels better this morning. Objective Exam General Appearance: mild distress Neurologic Exam: alert, 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 Respiratory Exam: diminished breath sounds Cardiovascular Exam: regular rate/rhythm, normal heart sounds Gastrointestinal/Abdomen Exam: soft, No tenderness, No mass Extremity Exam: normal inspection, normal range of motion OBJECTIVE DATA Vital Signs: Vital Signs - 24 hr Temp Pulse Resp BP Pulse Ox 06/04/22 07:54 99.6 F 125 H 17 127/70 96 06/04/22 05:52 100.9 F 06/04/22 04:00 102.2 F 132 H 28 H 134/84 86 L 06/03/22 23:59 102.7 F 118 H 17 123/82 93 L 06/03/22 20:00 98.7 F 123 H 16 120/75 94 L 06/03/22 19:37 85 L 06/03/22 16:00 103.2 F 130 H 15 116/66 88 L 06/03/22 12:00 99.1 F 124 H 16 105/56 90 L Pain Assessment - Last Documented Pain Intensity 4 Pain Scale Used 0-10 Pain Scale Intake and Output: Intake & Output 06/01/22 06/02/22 06/03/22 06/04/22 11:59 11:59 11:59 11:59 Intake Total 3370 2582 Output Total 750 Balance 3370 1832 Weight 78.4 kg Lab Results: Lab Results-Last 24 Hours 06/03/22 06/03/22 06/03/22 Range/Units 05:14 05:14 05:14 WBC (4.0-10.5) x10^3/uL RBC (4.1-5.4) x10^6/uL Hgb (12.0-16.0) g/dL Hct (35-47) % MCV (78-100) fL MCH (26-32) pg MCHC (32-36) g/dL RDW (11.5-14.0) % Plt Count (150-450) x10^3/uL MPV (7.5-11.0) fL Gran % (36.0-66.0) % Immature Gran % (Auto) (0.00-0.4) % Nucleat RBC Rel Count (0.00-0.1) % Eos # (Auto) (0-0.5) x10^3/uL Immature Gran # (Auto) (0.00-0.03) x10^3u/L Absolute Lymphs (auto) (1.0-4.6) x10^3/uL Absolute Monos (auto) (0.0-1.3) x10^3/uL Absolute Nucleated RBC (0.00-0.01) x10^3u/L Lymphocytes % (24.0-44.0) % Monocytes % (0.0-12.0) % Eosinophils % (0.00-5.0) % Basophils % (0.0-0.4) % Absolute Granulocytes (1.4-6.9) x10^3/uL Segmented Neutrophils 78 H (36.0-66.0) % Band Neutrophils 9 H (0.0-2.0) % Lymphocytes (Manual) 13 L (24-44) % Monocytes (Manual) (0.0-12.0) % Basophils # (0-0.4) x10^3/uL Toxic Granulation 1+ Platelet Estimate DECREASED (NORMAL) RBC Morphology ABNORMAL Anisocytosis 1+ Sodium 135 L (137-145) mmol/L Potassium 3.1 L (3.5-5.1) mmol/L Chloride 103 (98-107) mmol/L Carbon Dioxide 23 (22-30) mmol/L Anion Gap 11.4 (5-15) MEQ/L BUN 10 (7-17) mg/dL Creatinine 0.70 (0.52-1.04) mg/dL Estimated GFR > 60.0 ML/MIN Glucose 84 (74-106) mg/dL Calcium 7.2 L (8.4-10.2) mg/dL Magnesium (1.6-2.3) mg/dL Total Bilirubin 1.30 (0.2-1.3) mg/dL AST 285 H (14-36) U/L ALT 165 H (0-35) U/L Alkaline Phosphatase 74 (38-126) U/L Serum Total Protein 5.2 L (6.3-8.2) g/dL Albumin 2.5 L (3.5-5.0) g/dL CMV IgG Ab (0.00-0.59) U/mL CMV IgM Ab (NORMA) (0.0-29.9) AU/mL EBV Capsid Ag IgG Ab EBV Capsid Ag IgM Ab Hepatitis A IgM Ab Negative (Negative) Hep Bs Antigen Negative (Negative) Hep B Core IgM Ab Negative (Negative) Hep C Ab Signal/Cutoff <0.1 (0.0-0.9) s/co ratio Hepatitis C Interp Comment (.) Monoscreen (Negative) Influenza Type A Ag (NEGATIVE) Influenza Type B Ag (NEGATIVE) RSV (PCR) (Negative) SARS-CoV-2 (PCR) (NEGATIVE) 06/03/22 06/03/22 06/03/22 Range/Units 07:45 08:50 08:50 WBC 2.9 L (4.0-10.5) x10^3/uL RBC 4.12 (4.1-5.4) x10^6/uL Hgb 11.9 L (12.0-16.0) g/dL Hct 36.4 (35-47) % MCV 88.3 (78-100) fL MCH 28.9 (26-32) pg MCHC 32.7 (32-36) g/dL RDW 14.2 H (11.5-14.0) % Plt Count 67 L (150-450) x10^3/uL MPV 11.2 H (7.5-11.0) fL Gran % 72.3 H (36.0-66.0) % Immature Gran % (Auto) 0.7 H (0.00-0.4) % Nucleat RBC Rel Count 0.0 (0.00-0.1) % Eos # (Auto) 0 (0-0.5) x10^3/uL Immature Gran # (Auto) 0.02 (0.00-0.03) x10^3u/L Absolute Lymphs (auto) 0.57 L (1.0-4.6) x10^3/uL Absolute Monos (auto) 0.18 (0.0-1.3) x10^3/uL Absolute Nucleated RBC 0.00 (0.00-0.01) x10^3u/L Lymphocytes % 20.0 L (24.0-44.0) % Monocytes % 6.3 (0.0-12.0) % Eosinophils % 0.0 (0.00-5.0) % Basophils % 0.7 (0.0-0.4) % Absolute Granulocytes 2.06 (1.4-6.9) x10^3/uL Segmented Neutrophils (36.0-66.0) % Band Neutrophils (0.0-2.0) % Lymphocytes (Manual) (24-44) % Monocytes (Manual) (0.0-12.0) % Basophils # 0.02 (0-0.4) x10^3/uL Toxic Granulation Platelet Estimate (NORMAL) RBC Morphology Anisocytosis Sodium (137-145) mmol/L Potassium (3.5-5.1) mmol/L Chloride (98-107) mmol/L Carbon Dioxide (22-30) mmol/L Anion Gap (5-15) MEQ/L BUN (7-17) mg/dL Creatinine (0.52-1.04) mg/dL Estimated GFR ML/MIN Glucose (74-106) mg/dL Calcium (8.4-10.2) mg/dL Magnesium 1.4 L (1.6-2.3) mg/dL Total Bilirubin (0.2-1.3) mg/dL AST (14-36) U/L ALT (0-35) U/L Alkaline Phosphatase (38-126) U/L Serum Total Protein (6.3-8.2) g/dL Albumin (3.5-5.0) g/dL CMV IgG Ab <0.60 (0.00-0.59) U/mL CMV IgM Ab (NORMA) <30.0 (0.0-29.9) AU/mL EBV Capsid Ag IgG Ab Pending EBV Capsid Ag IgM Ab Pending Hepatitis A IgM Ab (Negative) Hep Bs Antigen (Negative) Hep B Core IgM Ab (Negative) Hep C Ab Signal/Cutoff (0.0-0.9) s/co ratio Hepatitis C Interp (.) Monoscreen (Negative) Influenza Type A Ag (NEGATIVE) Influenza Type B Ag (NEGATIVE) RSV (PCR) (Negative) SARS-CoV-2 (PCR) (NEGATIVE) 06/03/22 06/04/22 06/04/22 Range/Units Unknown 03:30 03:30 WBC 4.2 (4.0-10.5) x10^3/uL RBC 4.20 (4.1-5.4) x10^6/uL Hgb 11.9 L (12.0-16.0) g/dL Hct 37.1 (35-47) % MCV 88.3 (78-100) fL MCH 28.3 (26-32) pg MCHC 32.1 (32-36) g/dL RDW 14.6 H (11.5-14.0) % Plt Count 71 L (150-450) x10^3/uL MPV 11.6 H (7.5-11.0) fL Gran % (36.0-66.0) % Immature Gran % (Auto) (0.00-0.4) % Nucleat RBC Rel Count (0.00-0.1) % Eos # (Auto) (0-0.5) x10^3/uL Immature Gran # (Auto) (0.00-0.03) x10^3u/L Absolute Lymphs (auto) (1.0-4.6) x10^3/uL Absolute Monos (auto) (0.0-1.3) x10^3/uL Absolute Nucleated RBC (0.00-0.01) x10^3u/L Lymphocytes % (24.0-44.0) % Monocytes % (0.0-12.0) % Eosinophils % (0.00-5.0) % Basophils % (0.0-0.4) % Absolute Granulocytes (1.4-6.9) x10^3/uL Segmented Neutrophils 70 H (36.0-66.0) % Band Neutrophils 2 (0.0-2.0) % Lymphocytes (Manual) 26 (24-44) % Monocytes (Manual) 2 (0.0-12.0) % Basophils # (0-0.4) x10^3/uL Toxic Granulation 1+ Platelet Estimate DECREASED (NORMAL) RBC Morphology ABNORMAL Anisocytosis 1+ Sodium 134 L (137-145) mmol/L Potassium 3.7 (3.5-5.1) mmol/L Chloride 102 (98-107) mmol/L Carbon Dioxide 28 (22-30) mmol/L Anion Gap 7.1 (5-15) MEQ/L BUN 5 L (7-17) mg/dL Creatinine 0.62 (0.52-1.04) mg/dL Estimated GFR > 60.0 ML/MIN Glucose 105 (74-106) mg/dL Calcium 7.2 L (8.4-10.2) mg/dL Magnesium 1.6 (1.6-2.3) mg/dL Total Bilirubin 1.30 (0.2-1.3) mg/dL AST 256 H (14-36) U/L ALT 162 H (0-35) U/L Alkaline Phosphatase 127 H (38-126) U/L Serum Total Protein 5.2 L (6.3-8.2) g/dL Albumin 2.5 L (3.5-5.0) g/dL CMV IgG Ab (0.00-0.59) U/mL CMV IgM Ab (NORMA) (0.0-29.9) AU/mL EBV Capsid Ag IgG Ab EBV Capsid Ag IgM Ab Hepatitis A IgM Ab (Negative) Hep Bs Antigen (Negative) Hep B Core IgM Ab (Negative) Hep C Ab Signal/Cutoff (0.0-0.9) s/co ratio Hepatitis C Interp (.) Monoscreen NEGATIVE (Negative) Influenza Type A Ag (NEGATIVE) Influenza Type B Ag (NEGATIVE) RSV (PCR) (Negative) SARS-CoV-2 (PCR) (NEGATIVE) 06/04/22 Range/Units 03:30 WBC (4.0-10.5) x10^3/uL RBC (4.1-5.4) x10^6/uL Hgb (12.0-16.0) g/dL Hct (35-47) % MCV (78-100) fL MCH (26-32) pg MCHC (32-36) g/dL RDW (11.5-14.0) % Plt Count (150-450) x10^3/uL MPV (7.5-11.0) fL Gran % (36.0-66.0) % Immature Gran % (Auto) (0.00-0.4) % Nucleat RBC Rel Count (0.00-0.1) % Eos # (Auto) (0-0.5) x10^3/uL Immature Gran # (Auto) (0.00-0.03) x10^3u/L Absolute Lymphs (auto) (1.0-4.6) x10^3/uL Absolute Monos (auto) (0.0-1.3) x10^3/uL Absolute Nucleated RBC (0.00-0.01) x10^3u/L Lymphocytes % (24.0-44.0) % Monocytes % (0.0-12.0) % Eosinophils % (0.00-5.0) % Basophils % (0.0-0.4) % Absolute Granulocytes (1.4-6.9) x10^3/uL Segmented Neutrophils (36.0-66.0) % Band Neutrophils (0.0-2.0) % Lymphocytes (Manual) (24-44) % Monocytes (Manual) (0.0-12.0) % Basophils # (0-0.4) x10^3/uL Toxic Granulation Platelet Estimate (NORMAL) RBC Morphology Anisocytosis Sodium (137-145) mmol/L Potassium (3.5-5.1) mmol/L Chloride (98-107) mmol/L Carbon Dioxide (22-30) mmol/L Anion Gap (5-15) MEQ/L BUN (7-17) mg/dL Creatinine (0.52-1.04) mg/dL Estimated GFR ML/MIN Glucose (74-106) mg/dL Calcium (8.4-10.2) mg/dL Magnesium (1.6-2.3) mg/dL Total Bilirubin (0.2-1.3) mg/dL AST (14-36) U/L ALT (0-35) U/L Alkaline Phosphatase (38-126) U/L Serum Total Protein (6.3-8.2) g/dL Albumin (3.5-5.0) g/dL CMV IgG Ab (0.00-0.59) U/mL CMV IgM Ab (NORMA) (0.0-29.9) AU/mL EBV Capsid Ag IgG Ab EBV Capsid Ag IgM Ab Hepatitis A IgM Ab (Negative) Hep Bs Antigen (Negative) Hep B Core IgM Ab (Negative) Hep C Ab Signal/Cutoff (0.0-0.9) s/co ratio Hepatitis C Interp (.) Monoscreen (Negative) Influenza Type A Ag NEGATIVE (NEGATIVE) Influenza Type B Ag NEGATIVE (NEGATIVE) RSV (PCR) NEGATIVE (Negative) SARS-CoV-2 (PCR) NEGATIVE (NEGATIVE) Radiology Exams: Radiology Procedures Category Date Time Status ABDOMEN AND PELVIS W/0 CONTRAS [CT] Routine Exams 06/02/22 17:31 Completed CHEST 1 VIEW (PORTABLE) Routine Exams 06/04/22 08:07 Stop Req CHEST 2 VIEWS (PA AND LAT) Routine Exams 06/03/22 11:30 Completed CHEST WITHOUT CONTRAST [CT] Urgent Exams 06/04/22 08:10 Ordered HEAD WITHOUT CONTRAST [CT] Stat Exams 06/02/22 14:48 Completed Multi-Disciplinary Progress Notes: Multi-Disciplinary Progress Notes 06/03/22 19:39 Respiratory Note by Kumar Powell PT SATS WERE 85% ON RA, PLACED PT ON 2LPM NC AND SATS RECOVERED TO 93%. PT REMAINS ON 2LPM AT THIS TIME. Initialized on 06/03/22 19:39 - END OF NOTE Assessment/Plan (1) Pneumonia Current Visit: Yes Status: Acute Assessment & Plan: on rocephin and zithromax currently, patient remains febrile and acutely ill. spoke with Dr Carmona via phone and he will see today. will d/c IV fluids due to swelling and she is urinating well now and appears rehydrated. plan to change to zosyn due to concern for possible aspiration, appreciate pulm input Code(s): J18.9 - PNEUMONIA, UNSPECIFIED ORGANISM (2) Headache Current Visit: Yes Status: Acute Code(s): R51.9 - HEADACHE, UNSPECIFIED (3) Fever, unknown origin Current Visit: No Status: Acute (4) Nausea & vomiting Current Visit: No Status: Acute Code(s): R11.2 - NAUSEA WITH VOMITING, UNSPECIFIED
--- NOTE | 2022-06-04 09:22 | XRAY ---
Indication: Nausea, vomiting, cough, fever, and increased oxygen need. Multiple contiguous axial images obtained through the chest without contrast. Comparison: None Lungs demonstrates diffuse bilateral patchy consolidating/nonconsolidating airspace disease, interstitial edema, and small bilateral effusions. Heart not enlarged with prior atrial septal repair. Bony thorax intact. Limited upper abdomen demonstrates fatty liver. Impression: 1. Diffuse bilateral consolidating/nonconsolidating airspace disease with small bilateral effusions. 2. Incidental fatty liver and prior cardiac surgery.
[2022-06-04] MEDS: Monistat 7 VG SCH (11:13)
[2022-06-04] MEDS: Zithromax 500 MG/ 250 ML NaCl Premix 500 MG/250 ML IVPB IV SCH (11:13)
[2022-06-04] MEDS: PIPERACILLIN/TAZOBACTAM 3.375 GM in Sodium Chloride 100ML MINI-BAG PLUS 100 ML IV SCH ×3 (12:30→23:04)
[2022-06-04] MEDS ORDERED: MOTRIN 600 MG PO PRN (13:38)
[2022-06-04] MEDS: Diflucan 100 MG PO SCH (16:39)
[2022-06-04 19:18] LABS: EBV Ab VCA, IgG 40.9 U/mL (0.0-17.9); EBV Ab VCA, IgM <36.0 U/mL (0.0-35.9)
[2022-06-05 04:43] LABS: Hemoglobin 11.6 g/dL (12.0-16.0); Mean Cell Volume 85.8 fL (78-100); Mean Corpuscular Hemoglobin 28.4 pg (26-32); Mean Corpuscular Hgb Concent. 33.1 g/dL (32-36); Mean Platelet Volume 11.7 fL (7.5-11.0); Platelet Count 100 x10^3/uL (150-450); Red Blood Count 4.08 x10^6/uL (4.1-5.4); Red Cell Distribution Width 14.7 % (11.5-14.0); White Blood Count 5.5 x10^3/uL (4.0-10.5)
[2022-06-05 05:08] LABS: ALBUMIN 2.6 g/dL (3.5-5.0); ALKALINE PHOSPHATASE 134 U/L (38-126); ANION GAP 4.9 MEQ/L (5-15); BLOOD UREA NITROGEN 5 mg/dL (7-17); CHLORIDE 101 mmol/L (98-107); Calcium 7.8 mg/dL (8.4-10.2); Carbon Dioxide 34 mmol/L (22-30); Creatinine 1 0.54 mg/dL (0.52-1.04); EST GLOMERULAR FILTRATION RATE > 60.0 ML/MIN; Glucose 100 mg/dL (74-106); MAGNESIUM 1.9 mg/dL (1.6-2.3); Potassium 3.5 mmol/L (3.5-5.1); SGOT/AST 249 U/L (14-36); SGPT/ALT 147 U/L (0-35); SODIUM 136 mmol/L (137-145); Total Protein 5.4 g/dL (6.3-8.2)
[2022-06-05] MEDS: PIPERACILLIN/TAZOBACTAM 3.375 GM in Sodium Chloride 100ML MINI-BAG PLUS 100 ML IV SCH ×3 (05:21→18:56)
[2022-06-05 06:49] LABS: BAND 3 % (0.0-2.0); Eosinophil 1 % (0.00-3.0); Lymphocytes 11 % (24-44); Monocyte 8 % (0.0-12.0); Total Cells Counted 100
[2022-06-05 06:50] LABS: Platelet Estimate NORMAL (NORMAL)
[2022-06-05] MEDS ORDERED: Diflucan 100 MG PO SCH (10:00)
[2022-06-05] MEDS: Diflucan 100 MG PO SCH (10:17)
[2022-06-05] MEDS: Zithromax 500 MG/ 250 ML NaCl Premix 500 MG/250 ML IVPB IV SCH (10:19)
--- NOTE | 2022-06-05 13:44 | PCM.NOTE ---
Date and Time: 06/05/22 1340 Subjective Assessment: Pt is feeling much better. No appetite, but drinking. Didn't get along well with night nurse and considered leaving AMA at one point. Was started on zosyn yesterday. - Review of Systems Constitutional: No Fever Respiratory: Cough Objective Exam General Appearance: no apparent distress, alert, other (appears fatigued) Neurologic Exam: 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, cooperative Skin Exam: normal color, warm, dry, No rash Eye Exam: eyes nml inspection Ears, Nose, Throat Exam: moist mucous membranes Neck Exam: normal inspection Respiratory Exam: lungs clear, diminished breath sounds (good air exchange), No crackles/rales, No rhonchi, No wheezing Cardiovascular Exam: regular rate/rhythm, normal heart sounds, No murmur Gastrointestinal/Abdomen Exam: soft, normal bowel sounds, No tenderness, No distention, No mass, No guarding, No rebound Extremity Exam: normal inspection, No pedal edema, No swelling Back Exam: normal inspection, No rash OBJECTIVE DATA Vital Signs: Vital Signs - 24 hr Temp Pulse Resp BP Pulse Ox 06/05/22 12:00 98.4 F 115 H 19 124/75 96 06/05/22 09:03 93 L 06/05/22 07:58 98.7 F 113 H 19 116/71 93 L 06/05/22 04:00 98.7 F 116 H 21 116/72 92 L 06/04/22 22:02 98.6 F 112 H 18 126/76 95 06/04/22 21:25 95 06/04/22 16:31 98.3 F 114 H 21 116/75 95 06/04/22 14:00 100 F 108 H 18 92 L Pain Assessment - Last Documented Pain Intensity 0 Pain Scale Used FLACC Intake and Output: Intake & Output 06/03/22 06/04/22 06/05/22 06/06/22 11:59 11:59 11:59 11:59 Intake Total 3370 3062 1580 Output Total 1050 1001 Balance 3372011 579 Weight 78.4 kg Lab Results: Lab Results-Last 24 Hours 06/03/22 06/04/22 06/05/22 Range/Units 08:50 05:00 04:20 WBC 5.5 (4.0-10.5) x10^3/uL RBC 4.08 L (4.1-5.4) x10^6/uL Hgb 11.6 L (12.0-16.0) g/dL Hct 35.0 (35-47) % MCV 85.8 (78-100) fL MCH 28.4 (26-32) pg MCHC 33.1 (32-36) g/dL RDW 14.7 H (11.5-14.0) % Plt Count 100 L D (150-450) x10^3/uL MPV 11.7 H (7.5-11.0) fL Segmented Neutrophils 77 H (36.0-66.0) % Band Neutrophils 3 H (0.0-2.0) % Lymphocytes (Manual) 11 L (24-44) % Monocytes (Manual) 8 (0.0-12.0) % Eosinophils (Manual) 1 (0.00-3.0) % Platelet Estimate NORMAL (NORMAL) RBC Morphology NORMAL Sodium (137-145) mmol/L Potassium (3.5-5.1) mmol/L Chloride (98-107) mmol/L Carbon Dioxide (22-30) mmol/L Anion Gap (5-15) MEQ/L BUN (7-17) mg/dL Creatinine (0.52-1.04) mg/dL Estimated GFR ML/MIN Glucose (74-106) mg/dL Calcium (8.4-10.2) mg/dL Magnesium (1.6-2.3) mg/dL Total Bilirubin (0.2-1.3) mg/dL AST (14-36) U/L ALT (0-35) U/L Alkaline Phosphatase (38-126) U/L Serum Total Protein (6.3-8.2) g/dL Albumin (3.5-5.0) g/dL Serum , Qual NEGATIVE (Negative) EBV Capsid Ag IgG Ab 40.9 H (0.0-17.9) U/mL EBV Capsid Ag IgM Ab <36.0 (0.0-35.9) U/mL 06/05/22 Range/Units 04:20 WBC (4.0-10.5) x10^3/uL RBC (4.1-5.4) x10^6/uL Hgb (12.0-16.0) g/dL Hct (35-47) % MCV (78-100) fL MCH (26-32) pg MCHC (32-36) g/dL RDW (11.5-14.0) % Plt Count (150-450) x10^3/uL MPV (7.5-11.0) fL Segmented Neutrophils (36.0-66.0) % Band Neutrophils (0.0-2.0) % Lymphocytes (Manual) (24-44) % Monocytes (Manual) (0.0-12.0) % Eosinophils (Manual) (0.00-3.0) % Platelet Estimate (NORMAL) RBC Morphology Sodium 136 L (137-145) mmol/L Potassium 3.5 (3.5-5.1) mmol/L Chloride 101 (98-107) mmol/L Carbon Dioxide 34 H (22-30) mmol/L Anion Gap 4.9 L (5-15) MEQ/L BUN 5 L (7-17) mg/dL Creatinine 0.54 (0.52-1.04) mg/dL Estimated GFR > 60.0 ML/MIN Glucose 100 (74-106) mg/dL Calcium 7.8 L (8.4-10.2) mg/dL Magnesium 1.9 (1.6-2.3) mg/dL Total Bilirubin 1.10 (0.2-1.3) mg/dL AST 249 H (14-36) U/L ALT 147 H (0-35) U/L Alkaline Phosphatase 134 H (38-126) U/L Serum Total Protein 5.4 L (6.3-8.2) g/dL Albumin 2.6 L (3.5-5.0) g/dL Serum , Qual (Negative) EBV Capsid Ag IgG Ab (0.0-17.9) U/mL EBV Capsid Ag IgM Ab (0.0-35.9) U/mL Radiology Exams: Radiology Procedures Category Date Time Status CHEST WITHOUT CONTRAST [CT] Urgent Exams 06/04/22 08:10 Completed Assessment/Plan (1) Pneumonia Current Visit: Yes Status: Acute Qualifiers: Pneumonia type: due to unspecified organism Laterality: bilateral Lung location: unspecified part of lung Qualified Code(s): J18.9 - Pneumonia, unspecified organism Assessment & Plan: She is now on 3L O2 per [place], but is feeling better. Day #2 zosyn. I discussed with pt that it's important she stay, and I cannot promise she will go home tomorrow. She has a 5 yr old at home that she is concerned about. The day nurse discussed the nursing situation and getting a different nurse assignment tonight, so pt feels better about that. Code(s): J18.9 - PNEUMONIA, UNSPECIFIED ORGANISM
[2022-06-05] MEDS: Zofran 4 MG/2 ML VIAL IV PRN (14:35)
[2022-06-05] MEDS: Lactated Ringers 1,000 ML IV SCH (14:52)
[2022-06-05] MEDS: Monistat 7 VG SCH (20:51)
[2022-06-06] MEDS: PIPERACILLIN/TAZOBACTAM 3.375 GM in Sodium Chloride 100ML MINI-BAG PLUS 100 ML IV SCH ×5 (00:20→23:39)
[2022-06-06 05:05] LABS: Hematocrit 33.6 % (35-47); Mean Cell Volume 85.3 fL (78-100); Mean Corpuscular Hemoglobin 27.9 pg (26-32); Mean Corpuscular Hgb Concent. 32.7 g/dL (32-36); Mean Platelet Volume 11.2 fL (7.5-11.0); Platelet Count 121 x10^3/uL (150-450); Red Blood Count 3.94 x10^6/uL (4.1-5.4); Red Cell Distribution Width 14.6 % (11.5-14.0); White Blood Count 4.3 x10^3/uL (4.0-10.5)
[2022-06-06] MEDS: Lactated Ringers 1,000 ML IV SCH ×2 (05:17→23:40)
[2022-06-06 05:27] LABS: ANION GAP 7.4 MEQ/L (5-15); BLOOD UREA NITROGEN 5 mg/dL (7-17); CHLORIDE 101 mmol/L (98-107); Carbon Dioxide 30 mmol/L (22-30); Creatinine 1 0.56 mg/dL (0.52-1.04); EST GLOMERULAR FILTRATION RATE > 60.0 ML/MIN; Glucose 92 mg/dL (74-106); Potassium 3.4 mmol/L (3.5-5.1); SODIUM 135 mmol/L (137-145)
[2022-06-06 06:48] LABS: BAND 1 % (0.0-2.0); Lymphocytes 35 % (24-44); Monocyte 2 % (0.0-12.0); Platelet Estimate NORMAL (NORMAL); Total Cells Counted 100
[2022-06-06 09:57] LABS: ALBUMIN 2.6 g/dL (3.5-5.0); BILIRUBIN,TOTAL 0.9 mg/dL (0.2-1.3); Direct Bilirubin 0.3 mg/dL (0.0-0.4); Total Protein 5.5 g/dL (6.3-8.2)
[2022-06-06] MEDS: Diflucan 100 MG PO SCH (10:55)
[2022-06-06] MEDS: Zithromax 500 MG/ 250 ML NaCl Premix 500 MG/250 ML IVPB IV SCH (10:55)
[2022-06-06] MEDS: Zofran 4 MG/2 ML VIAL IV PRN (12:36)
[2022-06-06] MEDS ORDERED: solu-MEDROL 40 MG, Sterile H2O 10 ml 1 ML IV SCH ×2 (14:00)
--- NOTE | 2022-06-06 14:55 | PCM.NOTE ---
Date and Time: 06/06/22 1450 Subjective Assessment: Pt feels even better than she did yesterday. When she uses the incentive spirometer, it makes her cough/vomit up lots of yellow sputum. Afebrile x 24 hrs. Starting to get her appetite back. Her oxygen tubing came disconnected from the wall and her O2 sat dropped to 73%. - Review of Systems Constitutional: No Fever Respiratory: Cough, Short Of Breath Objective Exam General Appearance: no apparent distress, alert Neurologic Exam: 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, cooperative Skin Exam: normal color, warm, dry, No rash Eye Exam: eyes nml inspection Ears, Nose, Throat Exam: moist mucous membranes Neck Exam: normal inspection Respiratory Exam: normal breath sounds, crackles/rales (mild, bibasilar), No rhonchi, No wheezing Cardiovascular Exam: regular rate/rhythm, normal heart sounds, No murmur Gastrointestinal/Abdomen Exam: normal bowel sounds, No distention Extremity Exam: normal inspection, No pedal edema, No swelling Back Exam: normal inspection, No rash OBJECTIVE DATA Vital Signs: Vital Signs - 24 hr Temp Pulse Resp BP Pulse Ox 06/06/22 12:00 97.5 F 83 19 130/83 98 06/06/22 07:42 97.5 F 90 19 113/72 98 06/06/22 04:03 97.8 F 89 18 118/75 94 L 06/06/22 00:07 99.6 F 105 H 17 108/66 91 L 06/05/22 20:00 98.9 F 110 H 18 118/74 90 L 06/05/22 19:48 95 06/05/22 16:00 97.7 F 109 H 21 117/68 94 L Pain Assessment - Last Documented Pain Intensity 0 Pain Scale Used [facility] Intake and Output: Intake & Output 06/04/22 06/05/22 06/06/22 06/07/22 11:59 11:59 11:59 11:59 Intake Total 3062 1580 1905 120 Output Total 1050 1001 850 700 Balance 2011 579 1055 -580 Weight 78.4 kg Lab Results: Lab Results-Last 24 Hours 06/06/22 06/06/22 06/06/22 Range/Units 04:25 04:25 04:25 WBC 4.3 (4.0-10.5) x10^3/uL RBC 3.94 L (4.1-5.4) x10^6/uL Hgb 11.0 L (12.0-16.0) g/dL Hct 33.6 L (35-47) % MCV 85.3 (78-100) fL MCH 27.9 (26-32) pg MCHC 32.7 (32-36) g/dL RDW 14.6 H (11.5-14.0) % Plt Count 121 L (150-450) x10^3/uL MPV 11.2 H (7.5-11.0) fL Segmented Neutrophils 62 (36.0-66.0) % Band Neutrophils 1 (0.0-2.0) % Lymphocytes (Manual) 35 (24-44) % Monocytes (Manual) 2 (0.0-12.0) % Platelet Estimate NORMAL (NORMAL) RBC Morphology NORMAL Sodium 135 L (137-145) mmol/L Potassium 3.4 L (3.5-5.1) mmol/L Chloride 101 (98-107) mmol/L Carbon Dioxide 30 (22-30) mmol/L Anion Gap 7.4 (5-15) MEQ/L BUN 5 L (7-17) mg/dL Creatinine 0.56 (0.52-1.04) mg/dL Estimated GFR > 60.0 ML/MIN Glucose 92 (74-106) mg/dL Calcium 8.0 L (8.4-10.2) mg/dL Total Bilirubin 0.90 (0.2-1.3) mg/dL Direct Bilirubin 0.3 (0.0-0.4) mg/dL AST 185 H (14-36) U/L ALT 139 H (0-35) U/L Alkaline Phosphatase 132 H (38-126) U/L Serum Total Protein 5.5 L (6.3-8.2) g/dL Albumin 2.6 L (3.5-5.0) g/dL Assessment/Plan (1) Pneumonia Current Visit: Yes Status: Acute Qualifiers: Pneumonia type: due to unspecified organism Laterality: bilateral Lung location: unspecified part of lung Qualified Code(s): J18.9 - Pneumonia, unspecified organism Assessment & Plan: On day #3 of zosyn, and is recovering well. Still on 3L O2 per NC. She agrees to stay again tonight. Discussed other treatments, so we will try adding nebulizer tx and IV steroid. Code(s): J18.9 - PNEUMONIA, UNSPECIFIED ORGANISM (2) Thrombocytopenia Current Visit: Yes Status: Acute Assessment & Plan: Likely related to acute illness, as it is improving daily (now 121 - was 84 on admission). (3) Anemia Current Visit: Yes Status: Acute Qualifiers: Anemia type: unspecified type Qualified Code(s): D64.9 - Anemia, unspecified Assessment & Plan: Has a hx of anemia, but could be dilutional this hospital stay. Code(s): D64.9 - ANEMIA, UNSPECIFIED
[2022-06-06] MEDS: DUONEB 0.5-3 MG/3 ml Neb IH SCH ×3 (15:54→22:15)
[2022-06-06] MEDS: Monistat 7 VG SCH (21:59)
[2022-06-06] MEDS: solu-MEDROL 40 MG, Sterile H2O 10 ml 1 ML IV SCH ×2 (22:00)
[2022-06-07] MEDS ORDERED: Tums EX 750 MG PO PRN ×2 (00:39→06:45)
[2022-06-07] MEDS: DUONEB 0.5-3 MG/3 ml Neb IH SCH ×2 (03:03→06:50)
[2022-06-07] MEDS: PIPERACILLIN/TAZOBACTAM 3.375 GM in Sodium Chloride 100ML MINI-BAG PLUS 100 ML IV SCH (05:32)
[2022-06-07] MEDS: Zithromax 500 MG/ 250 ML NaCl Premix 500 MG/250 ML IVPB IV SCH (08:03)
--- NOTE | 2022-06-07 08:04 | PCM.DS ---
Discharge Summary Date of Admission: 06/03/22 08:21 Admitting Physician: PHYLLIS MACIEL Consults: Consults on Case 06/04/22 08:09 Consult Pulmonology ROUTINE Primary Care Provider: PHYLLIS MACIEL Allergies Allergies No Known Drug Allergies Allergy (Verified 05/29/22 19:27) Hospital Summary - Hospital Course Hospital Course: patient was admitted with severe acute illness, profoundly dehydrated, vomiting, fever and headache. treated for pneumonia, she was hypoxic and febrile early in the admission. on room air and her labs are normalizing at the time of discharge. she is tolerating po intake and feels much better at this time. - Vitals & Intake/Output Vital Signs: Vital Signs Temperature 98.2 F 06/07/22 04:00 Pulse Rate 57 L 06/07/22 06:51 Respiratory Rate 17 06/07/22 06:51 Blood Pressure 115/73 06/07/22 04:00 O2 Sat by Pulse Oximetry 97 06/07/22 06:51 Intake & Output: Intake & Output 06/04/22 06/05/22 06/06/22 06/07/22 11:59 11:59 11:59 11:59 Intake Total 3062 1580 1905 1782 Output Total 1050 7027 004 8460 Balance 2011 579 1055 582 Weight 78.4 kg - Lab Result Diagrams: 06/06/22 04:25 06/06/22 04:25 Lab Results-Last 24 Hrs: Lab Results-Last 24 Hours 06/06/22 Range/Units 04:25 Total Bilirubin 0.90 (0.2-1.3) mg/dL Direct Bilirubin 0.3 (0.0-0.4) mg/dL AST 185 H (14-36) U/L ALT 139 H (0-35) U/L Alkaline Phosphatase 132 H (38-126) U/L Serum Total Protein 5.5 L (6.3-8.2) g/dL Albumin 2.6 L (3.5-5.0) g/dL Micro Results-Entire Visit: Microbiology 06/02/22 15:22 Blood Culture Gram Stain - Final Blood Not Reportable Blood Culture - Final NO GROWTH 06/02/22 06:31 Urine Culture - Final Urine, Void MIXED SAMINA; 3 OR MORE TYPES. NO PREDOMINANT ORGANISM. NO FURTHER WORKUP. PLEASE RESUBMIT IF CLINICALLY INDICATED. - Procedures and Test Procedures and Tests throughout Hospitalization: Therapy Orders & Screens 06/02/22 19:34 Oxygen Nasal Cannula 2 lpm Comment: Diagnosis: DEHYDRATION, HEADACHE, NAUSEA VOMITTING 06/05/22 08:09 Incentive Spirometry UD Comment: Diagnosis: HEADACHE, FUO, N/V 06/07/22 07:00 Respiratory Therapy Assessment DAILY Comment: Diagnosis: HEADACHE, FUO, N/V Discharge Exam General Appearance: no apparent distress, alert Respiratory Exam: normal breath sounds, lungs clear, No respiratory distress Cardiovascular Exam: regular rate/rhythm, normal heart sounds Gastrointestinal/Abdomen Exam: soft, No tenderness, No mass Extremity Exam: normal inspection, normal range of motion Skin Exam: normal color, warm, dry Final Diagnosis/Problem List - Final Discharge Diagnosis/Problem (1) Pneumonia Current Visit: Yes Status: Acute Assessment & Plan: home on levaquin x 5 days Code(s): J18.9 - PNEUMONIA, UNSPECIFIED ORGANISM (2) Headache Current Visit: Yes Status: Acute Assessment & Plan: resolved with treatment of dehydration and pneumonia Code(s): R51.9 - HEADACHE, UNSPECIFIED (3) Fever, unknown origin Current Visit: No Status: Acute (4) Nausea & vomiting Current Visit: No Status: Acute Code(s): R11.2 - NAUSEA WITH VOMITING, UNSPECIFIED - Discharge Disposition: Home, Self-Care Condition: Stable Prescriptions: New Fluconazole [Diflucan] 150 mg PO DAILY #1 tablet levoFLOXacin [Levofloxacin] 750 mg PO DAILY #5 tablet Albuterol 2.5 mg/3 ml Neb [Proventil 2.5 mg/3 ml Neb] 2.5 mg IH Q6H PRN PRN #50 unit PRN Reason: Cough Continue Ondansetron ODT 4 MG [Zofran Odt 4 mg] 4 mg PO Q6H PRN PRN PRN Reason: Nausea Acetaminophen [Tylenol Extra Strength] 1,000 mg PO Q4H PRN PRN Reason: Fever Discontinued Cefdinir [Omnicef 300 mg] 300 mg PO BID 7 Days #14 cap Follow up with: PHYLLIS MACILE MD [Primary Care Provider] -
[2022-06-07 08:23] VITALS: O2SAT 95
[2022-06-07 08:25] VITALS: BP 131/85; PULSE 51
[2022-06-07 08:53] LABS: Hematocrit 34.2 % (35-47); Hemoglobin 11.1 g/dL (12.0-16.0); Mean Cell Volume 85.7 fL (78-100); Mean Corpuscular Hemoglobin 27.8 pg (26-32); Mean Corpuscular Hgb Concent. 32.5 g/dL (32-36); Mean Platelet Volume 11.1 fL (7.5-11.0); Platelet Count 165 x10^3/uL (150-450); Red Blood Count 3.99 x10^6/uL (4.1-5.4); Red Cell Distribution Width 14.6 % (11.5-14.0); White Blood Count 4.2 x10^3/uL (4.0-10.5)
[2022-06-07 09:14] LABS: ALKALINE PHOSPHATASE 116 U/L (38-126); ANION GAP 14.8 MEQ/L (5-15); BLOOD UREA NITROGEN 7 mg/dL (7-17); CHLORIDE 103 mmol/L (98-107); Calcium 8.7 mg/dL (8.4-10.2); Carbon Dioxide 24 mmol/L (22-30); Creatinine 1 0.51 mg/dL (0.52-1.04); EST GLOMERULAR FILTRATION RATE > 60.0 ML/MIN; Glucose 158 mg/dL (74-106); Potassium 3.7 mmol/L (3.5-5.1); SGOT/AST 129 U/L (14-36); SGPT/ALT 153 U/L (0-35); SODIUM 139 mmol/L (137-145); Total Protein 6.2 g/dL (6.3-8.2)
[2022-06-07] MEDS: solu-MEDROL 40 MG, Sterile H2O 10 ml 1 ML IV SCH ×2 (09:23)
--- NOTE | 2022-06-07 10:15 | CONS ---
CONSULT DATE: 06/04/2022 HISTORY: Miss Keny Apodaca is a 22-year-old girl who has been sick for about a week. The patient reportedly woke up day night last week with headache and neck pain. She was also noted to have high grade fever. She was subsequently seen at [facility] Emergency Room as well as [facility] Emergency Room the next day and was discharged home. The patient's symptoms continued to worsen leading to an office visit to Dr. Plaza who ended up admitting her on Tuesday. The patient was noted to have fever with significant dehydration requiring fluid resuscitation. In addition, she was noted to have a low white count with thrombocytopenia as well. The patient's picture was that of likely viral illness and she has been treated symptomatically. A chest x-ray followed by a CT chest obtained this morning shows bilateral infiltrates with small pleural effusions. The patient was having intractable nausea and vomiting a day or two after admission which has now resolved. At the time of my evaluation, the patient is awake and able to carry out a conversation. She denies any cough, shortness of breath. She is currently on oxygen via nasal cannula on 2 liters. She has had no previous pulmonary symptoms. PAST MEDICAL HISTORY: The patient was reportedly in good in health. PAST SURGICAL HISTORY: Negative. PERSONAL AND SOCIAL HISTORY: She is a nonsmoker. MEDICATIONS: She takes no prescription medications. ALLERGIES: NKDA. PHYSICAL EXAMINATION: This is a young girl who appears comfortable, able to carry out a conversation. Vital signs noted. Oxygen via nasal cannula at 2 liters. HEENT: Normocephalic. Oral exam unremarkable. NECK: Supple. CVS: First and second heart sounds are normal, regular, rhythm with tachycardia. RESPIRATORY: Shows diminished breath sounds, fairly clear, occasional crackles are heard. ABDOMEN: Soft. EXTREMITIES: No edema is noted. LABORATORY DATA AND TESTS: All labs and x-rays were reviewed. Cultures remain negative. ASSESSMENT: This is a 22-year-old woman admitted with: 1) Severe nausea and vomiting which appears to have resolved is now noted to have hypoxic respiratory failure. 2) Bilateral infiltrates and small pleural effusions likely from aspiration. 3) Likely viral syndrome. 4) Electrolyte imbalance being corrected. 5) Leukopenia and thrombocytosis will require follow up for normalization. RECOMMENDATIONS: 1) I agree with current treatment. The Zosyn and Zithromax appear to offer adequate coverage for aspiration and atypical pneumonia. 2) Continue supplemental oxygen. 3) Increase oral intake. 4) SCD's for deep vein thrombosis prophylaxis. 5) Given patient's young age would recommend urine or serum test. 6) Wean supplemental oxygen keeping saturations at or above 90%. 7) I would recommend repeating liver function tests and white count after recovery to check for normalization. 8) I have discussed this plan and recommendations with patient as well as her parents at bedside. I will be available as needed. Thank you for allowing me to participate in the care of this patient.
[2022-06-07 11:09] LABS: ANISOCYTOSIS 1+; BAND 2 % (0.0-2.0); Lymphocytes 36 % (24-44); Monocyte 1 % (0.0-12.0); Platelet Estimate NORMAL (NORMAL); Total Cells Counted 100; Toxic Granulation 1+
== END 2022-06-07 09:50 | disposition home or self-care (01) | DRG 195 ==
LOC: MED SURG 14:29 → OBSVTOIN 06-03 08:21
PROVIDERS: ADMIT Family Medicine; ATTEND Family Medicine
DX: J18.9 Pneumonia, unspecified organism (principal); R51.9 Headache, unspecified; R50.9 Fever, unspecified; R11.2 Nausea with vomiting, unspecified; E86.0 Dehydration; D69.6 Thrombocytopenia, unspecified; D64.9 Anemia, unspecified; H92.02 Otalgia, left ear; Z20.828 Contact with and (suspected) exposure to other viral communicable diseases
CPT/HCPCS: 0241U; 36415; 70450; 71046; 71250; 74176; 80048; 80053; 80074; 80076; 81015; 83735; 84703; 85025; 86308; 86644; 86645; 86665; 87040; 87086; 94640; 94760; 94761; 94762; G0378; J0456; J0696; J1170; J2405; J2920; A9270-GY

== ENCOUNTER 2022-06-10 09:41 | Emergency (ER) | payer OTHER ==
[2022-06-10] MEDS ORDERED: Reglan 10 MG/2 ML IV ONE (10:24)
[2022-06-10] MEDS ORDERED: Sodium Chloride 0.9% 1000 ML 1,000 ML ONE (10:24)
[2022-06-10] MEDS ORDERED: TORAdol 30 mg Injection IV ONE (10:24)
[2022-06-10] MEDS ORDERED: Reglan 10 MG/2 ML ONE (10:24)
[2022-06-10] MEDS ORDERED: BENADRYL 50 MG/ML ONE (10:24)
[2022-06-10] MEDS ORDERED: TORAdol 30 mg Injection ONE (10:24)
[2022-06-10] MEDS ORDERED: BENADRYL 50 MG/ML IV ONE (10:24)
[2022-06-10] MEDS ORDERED: Sodium Chloride 0.9% 1000 ML 1,000 ML IV SCH (10:30)
[2022-06-10 11:24] VITALS: O2SAT 98
--- NOTE | 2022-06-10 11:49 | ERPHSYRPT ---
- History of Present Illness Time Seen by Provider: 06/10/22 09:53 Historian: patient Exam Limitations: no limitations Patient Subjective Stated Complaint: MARTIN, nausea, abd pain, body aches, PNA Triage Nursing Assessment: pt to ED c/o MARTIN, nausea without emesis, abd pain, body aches and PNA x 2 days. pt was recently admitted and DC from this hospital for same sx and dx with bilateral PNA. rates 08/02 MARTIN. currently taking levoquin. pt states she does feel like she possibly has an ear infection. Allergies/Adverse Reactions: No Known Drug Allergies Allergy (Verified 06/10/22 09:48) Home Medications: Acetaminophen [Tylenol Extra Strength] 1,000 mg PO Q4H PRN 06/02/22 [History] Hx Tetanus, Diphtheria Vaccination/Date Given: Yes Hx Influenza Vaccination/Date Given: No Hx Pneumococcal Vaccination/Date Given: No Immunizations Up to Date: No Travel Risk - International Travel Have you traveled outside of the country in past 3 weeks: No - Coronavirus Screening Are you exhibiting any of the following symptoms?: Yes Symptoms: Headaches/Body Aches/Fatigue Close contact with a COVID-19 positive Pt in past 14-21 Days: No - Vaccine Status Have you recieved a Covid-19 vaccination: No - Past Medical History Pertinent Past Medical History: Yes Neurological History: No Pertinent History ENT History: No Pertinent History Cardiac History: Arrhythmia, Other Respiratory History: No Pertinent History Endocrine Medical History: No Pertinent History Musculoskeletal History: No Pertinent History GI Medical History: No Pertinent History History: No Pertinent History Psycho-Social History: No Pertinent History Female Reproductive Disorders: No Pertinent History Other Medical History: atrial septal defect. 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 - Past Surgical History Past Surgical History: Yes Neuro Surgical History: No Pertinent History Cardiac: Cardiac Catheterization Respiratory: Other Gastrointestinal: Appendectomy Genitourinary: No Pertinent History Musculoskeletal: No Pertinent History Female Surgical History: Section Other Surgical History: nov 28--put in a device - Social History Smoking Status: Never smoker Exposure to second hand smoke: No Alcohol Use: None Drug Use: none Patient Lives Alone: No Significant Family History: no pertinent family hx - Female History Hx Last Menstrual Period: 2 days ago Hx Now: No - Nursing Vital Signs Nursing Vital Signs: Initial Vital Signs Temperature 97.4 F 06/10/22 09:51 Pulse Rate 99 H 06/10/22 09:51 Respiratory Rate 18 06/10/22 09:51 Blood Pressure 133/88 06/10/22 09:51 O2 Sat by Pulse Oximetry 97 06/10/22 09:51 Pain Scale Pain Intensity 0 - Physical Exam SpO2: 98 Ordered Tests: Medication Summary Generic Name Dose Route Start Last Admin Trade Name Marisa PRN Reason Stop Dose Admin Sodium Chloride 1,000 mls @ 500 mls/hr 06/10/22 10:30 06/10/22 10:30 Sodium Chloride 0.9% 1000 Ml IV 07/10/22 10:29 500 mls/hr .Q2H DARSHANA Administration Discontinued Medications Generic Name Dose Route Start Last Admin Trade Name Marisa PRN Reason Stop Dose Admin Diphenhydramine HCl 50 mg 06/10/22 10:24 06/10/22 10:31 Diphenhydramine Hcl 50 Mg/Ml Vial IV 06/10/22 10:25 50 mg STAT ONE Administration Diphenhydramine HCl Confirm 06/10/22 10:24 Diphenhydramine Hcl 50 Mg/Ml Vial Administered 06/10/22 10:25 Dose 50 mg .ROUTE .STK-MED ONE Ketorolac Tromethamine 30 mg 06/10/22 10:24 06/10/22 10:30 Ketorolac Tromethamine 30 Mg/Ml Inj IV 06/10/22 10:25 30 mg STAT ONE Administration Ketorolac Tromethamine Confirm 06/10/22 10:24 Ketorolac Tromethamine 30 Mg/Ml Inj Administered 06/10/22 10:25 Dose 30 mg .ROUTE .STK-MED ONE Metoclopramide HCl 10 mg 06/10/22 10:24 06/10/22 10:31 Metoclopramide Hcl 10 Mg/2 Ml Vial IV 06/10/22 10:25 10 mg STAT ONE Administration Metoclopramide HCl Confirm 06/10/22 10:24 Metoclopramide Hcl 10 Mg/2 Ml Vial Administered 06/10/22 10:25 Dose 10 mg .ROUTE .STK-MED ONE - Departure Referrals: PHYLLIS MACIEL MD [Primary Care Provider] - Follow up/PCP as directed
--- NOTE | 2022-06-10 11:51 | ERPHSYRPT ---
- History of Present Illness Time Seen by Provider: 06/10/22 09:53 Source: patient Exam Limitations: no limitations Patient Subjective Stated Complaint: MARTIN, nausea, abd pain, body aches, PNA Triage Nursing Assessment: pt to ED c/o MARTIN, nausea without emesis, abd pain, body aches and PNA x 2 days. pt was recently admitted and DC from this hospital for same sx and dx with bilateral PNA. rates 08/02 MARTIN. currently taking levoquin. pt states she does feel like she possibly has an ear infection. Physician History: 22 years old female presented in the ER with chief complaint of headache which is going on for almost over a week since she returned from [place]. Patient was evaluated here and couple of other hospitals and later on she was admitted, was diagnosed with bilateral pneumonia, got discharged on Tuesday, was feeling better until couple of days ago and now again having same headache with some pain in the neck without nausea or vomiting. Denies any visual disturbance, numbness tingling focal weakness. No difficulty speech. No fever or chills reported. Timing/Duration: day(s) (2), constant, gradual onset, worse Quality: sharpness Head Pain Location: frontal Severity of Pain-Max: severe Severity of Pain-Current: severe Recent Head Trauma: no recent headache/trauma Associated Symptoms: No fever/chills, No nausea/vomiting, No nasal congestion, No neck pain, No numbness in legs/feet, No speech problems, No stiff neck, No trouble walking, No vision changes, No visual disturbance Previous symptoms: same symptoms as today Allergies/Adverse Reactions: No Known Drug Allergies Allergy (Verified 06/10/22 09:48) Home Medications: Acetaminophen [Tylenol Extra Strength] 1,000 mg PO Q4H PRN 06/02/22 [History] Hx Tetanus, Diphtheria Vaccination/Date Given: Yes Hx Influenza Vaccination/Date Given: No Hx Pneumococcal Vaccination/Date Given: No Immunizations Up to Date: No Travel Risk - International Travel Have you traveled outside of the country in past 3 weeks: No - Coronavirus Screening Are you exhibiting any of the following symptoms?: Yes Symptoms: Headaches/Body Aches/Fatigue Close contact with a COVID-19 positive Pt in past 14-21 Days: No - Vaccine Status Have you recieved a Covid-19 vaccination: No - Review of Systems Constitutional: No Symptoms Eyes: No Symptoms Ears, Nose, & Throat: No Symptoms Respiratory: No Symptoms Cardiac: No Symptoms Abdominal/Gastrointestinal: No Symptoms Genitourinary Symptoms: No Symptoms Musculoskeletal: No Symptoms Neurological: Headache, No Dizziness, No Sensory Changes, No Speech Changes Psychological: No Symptoms Endocrine: No Symptoms Hematologic/Lymphatic: No Symptoms Immunological/Allergic: No Symptoms - Past Medical History Pertinent Past Medical History: Yes Neurological History: No Pertinent History ENT History: No Pertinent History Cardiac History: Arrhythmia, Other Respiratory History: No Pertinent History Endocrine Medical History: No Pertinent History Musculoskeletal History: No Pertinent History GI Medical History: No Pertinent History History: No Pertinent History Psycho-Social History: No Pertinent History Female Reproductive Disorders: No Pertinent History Other Medical History: atrial septal defect. 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 - Past Surgical History Past Surgical History: Yes Neuro Surgical History: No Pertinent History Cardiac: Cardiac Catheterization Respiratory: Other Gastrointestinal: Appendectomy Genitourinary: No Pertinent History Musculoskeletal: No Pertinent History Female Surgical History: Section Other Surgical History: nov 28--put in a device - Social History Smoking Status: Never smoker Exposure to second hand smoke: No Alcohol Use: None Drug Use: none Patient Lives Alone: No Significant Family History: no pertinent family hx - Female History Hx Last Menstrual Period: 2 days ago Hx Now: No - Nursing Vital Signs Nursing Vital Signs: Initial Vital Signs Temperature 97.4 F 06/10/22 09:51 Pulse Rate 99 H 06/10/22 09:51 Respiratory Rate 18 06/10/22 09:51 Blood Pressure 133/88 06/10/22 09:51 O2 Sat by Pulse Oximetry 97 06/10/22 09:51 Pain Scale Pain Intensity 0 - Physical Exam General Appearance: no apparent distress, alert Eye Exam: PERRL/EOMI Ears, Nose, Throat Exam: normal ENT inspection, TMs normal, pharynx normal Neck Exam: normal inspection, non-tender, supple, full range of motion Respiratory Exam: normal breath sounds, lungs clear Cardiovascular Exam: regular rate/rhythm, normal heart sounds Gastrointestinal/Abdominal Exam: soft, normal bowel sounds, No tenderness Back Exam: normal inspection, normal range of motion Extremity Exam: normal inspection, normal range of motion Mental Status Exam: alert, 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, cooperative bale stacker Exam: normal hearing, normal speech, PERRL Coordination/Gait Exam: normal finger to nose, normal gait, normal cerebellar function, negative Romberg's sign Motor/Sensory Exam: no motor deficit, no sensory deficit, no pronator drift, negative Babinski's sign DTR Exam: bicep (R): 2+, bicep (L): 2+, tricep (R): 2+, tricep (L): 2+, knee (R): 2+, knee (L): 2+ Skin Exam: normal color SpO2 Interpretation: normal SpO2: 98 O2 Delivery: Room Air Ordered Tests: Medication Summary Discontinued Medications Generic Name Dose Route Start Last Admin Trade Name Marisa PRN Reason Stop Dose Admin Diphenhydramine HCl 50 mg 06/10/22 10:24 06/10/22 10:31 Diphenhydramine Hcl 50 Mg/Ml Vial IV 06/10/22 10:25 50 mg STAT ONE Administration Diphenhydramine HCl Confirm 06/10/22 10:24 Diphenhydramine Hcl 50 Mg/Ml Vial Administered 06/10/22 10:25 Dose 50 mg .ROUTE .STK-MED ONE Sodium Chloride 1,000 mls @ 500 mls/hr 06/10/22 10:30 06/10/22 10:30 Sodium Chloride 0.9% 1000 Ml IV 07/10/22 10:29 500 mls/hr .Q2H DARSHANA Administration Sodium Chloride Confirm 06/10/22 10:24 Sodium Chloride 0.9% 1000 Ml Administered 06/10/22 10:25 Dose 1,000 mls @ ud .ROUTE .STK-MED ONE Ketorolac Tromethamine 30 mg 06/10/22 10:24 06/10/22 10:30 Ketorolac Tromethamine 30 Mg/Ml Inj IV 06/10/22 10:25 30 mg STAT ONE Administration Ketorolac Tromethamine Confirm 06/10/22 10:24 Ketorolac Tromethamine 30 Mg/Ml Inj Administered 06/10/22 10:25 Dose 30 mg .ROUTE .STK-MED ONE Metoclopramide HCl 10 mg 06/10/22 10:24 06/10/22 10:31 Metoclopramide Hcl 10 Mg/2 Ml Vial IV 06/10/22 10:25 10 mg STAT ONE Administration Metoclopramide HCl Confirm 06/10/22 10:24 Metoclopramide Hcl 10 Mg/2 Ml Vial Administered 08/18/22 10:25 Dose 10 mg .ROUTE .STK-MED ONE - Progress Progress: improved, re-examined Air Movement: good Progress Note: She is given fluids and migraine cocktail, on reevaluation her headache is completely resolved. Negative neuro exam. Do not think she needs CT head or any other work-up and recommended outpatient primary care/neurology follow-up. Discussed signs symptoms of worsening needing return to ER which she seems understanding. Counseled pt/family regarding: diagnosis, need for follow-up - Departure Departure Disposition: Home Clinical Impression: Migraine Condition: Stable Critical Care Time: No Referrals: PHYLLIS MACIEL MD [Primary Care Provider] - Follow up/PCP as directed (1-2 days for reevaluation) Instructions: Migraines (DC) Additional Instructions: Follow-up with primary care for reevaluation, may need referral for neurology evaluation. Take Tylenol/ibuprofen as needed. Return to ER for tractable headache, vomiting, fever chills, numbness tingling weakness etc.
[2022-06-10 11:56] VITALS: BP 111/73; PULSE 72
== END 2022-06-10 12:01 | disposition home or self-care (01) ==
LOC: ED 09:41
DX: G43.909 Migraine, unspecified, not intractable, without status migrainosus (principal); M54.2 Cervicalgia; Z28.310 Unvaccinated for COVID-19
CPT/HCPCS: 36000; 96374; 96375; 99284; J1200; J1885

== ENCOUNTER 2023-11-10 09:53 | Emergency (ER) | payer OTHER ==
[2023-11-10] MEDS ORDERED: Sodium Chloride 0.9% 1000 ML 1,000 ML IV STA (10:11)
[2023-11-10] MEDS ORDERED: Zofran 4 MG/2 ML VIAL IV ONE ×2 (10:13→12:50)
[2023-11-10 10:16] VITALS: TEMP 97.9
[2023-11-10] MEDS ORDERED: Sodium Chloride 0.9% 1000 ML 1,000 ML ONE (10:35)
[2023-11-10] MEDS ORDERED: Zofran 4 MG/2 ML VIAL ONE ×2 (10:35→12:54)
[2023-11-10 10:39] LABS: Absolute Neutrophil Ct (ANC) 6.54 x10^3/uL (1.4-6.9); BASOPHIL % 0.2 % (0.0-0.4); Basophil (Absolute #) 0.02 x10^3/uL (0-0.4); Eosinophil % 0.4 % (0.00-5.0); Eosinophil (Absolute #) 0.03 x10^3/uL (0-0.5); Hematocrit 39.8 % (35-47); Hemoglobin 13.3 g/dL (12.0-16.0); IMMATURE GRAN # 0.02 x10^3u/L (0.00-0.03); IMMATURE GRAN % 0.2 % (0.00-0.4); Lymphocyte (Absolute #) 1.53 x10^3/uL (1.0-4.6); Lymphocytes % 17.9 % (24.0-44.0); Mean Cell Volume 84.1 fL (78-100); Mean Corpuscular Hemoglobin 28.1 pg (26-32); Mean Corpuscular Hgb Concent. 33.4 g/dL (32-36); Mean Platelet Volume 10.8 fL (7.5-11.0); Monocyte (Absolute #) 0.42 x10^3/uL (0.0-1.3); Monocytes % 4.9 % (0.0-12.0); Neutrophil % 76.4 % (36.0-66.0); Platelet Count 278 x10^3/uL (150-450); Red Blood Count 4.73 x10^6/uL (4.1-5.4); Red Cell Distribution Width 12.9 % (11.5-14.0); White Blood Count 8.6 x10^3/uL (4.0-10.5)
[2023-11-10 10:53] LABS: ALBUMIN 4.3 g/dL (3.5-5.0); ANION GAP 12.4 MEQ/L (5-15); BILIRUBIN,TOTAL 1.8 mg/dL (0.2-1.3); Calcium 9.4 mg/dL (8.4-10.2); Creatinine 1 0.49 mg/dL (0.52-1.04); EST GLOMERULAR FILTRATION RATE 134.9 ML/MIN; Potassium 3.3 mmol/L (3.5-5.1); Total Protein 7.5 g/dL (6.3-8.2)
[2023-11-10 11:06] LABS: Appearance Cloudy (Clear); Bacteria Few /HPF (None Seen); Bilirubin Moderate (Negative); Blood Negative (Negative); Epithelial Cells Many /HPF (None Seen); Glucose, Urine Negative (Negative); Ketones >=160 (Negative); Leukocyte Esterase Small (Negative); Mucus Moderate /HPF (NEGATIVE); Nitrite Negative (Negative); Protein,Urine Dip 30 (Negative); Specific Gravity >=1.030 (1.005-1.030)
[2023-11-10 11:07] LABS: ADD URINE CULTURE? YES (NO); Hyaline Casts 0-2 /LPF (0-2)
[2023-11-10 11:27] LABS: INFLUENZA A NEGATIVE (NEGATIVE); RESPIRATORY SYNCTIAL VIRUS NEGATIVE (NEGATIVE); SARS-CoV-2 Xpert Express NEGATIVE (NEGATIVE)
[2023-11-10 11:33] LABS: INFLUENZA B POSITIVE (NEGATIVE)
[2023-11-10] MEDS ORDERED: Sodium Chloride 0.9% 500 ML 500 ML IV ONE ×2 (11:47→11:51)
[2023-11-10] MEDS ORDERED: KEFLEX 500 MG PO ONE (11:48)
[2023-11-10] MEDS ORDERED: KEFLEX 500 MG ONE (11:51)
[2023-11-10 11:57] VITALS: RESP 18
--- NOTE | 2023-11-10 12:42 | ERPHSYRPT ---
- History of Present Illness Time Seen by Provider: 11/10/23 09:58 Source: patient, family Exam Limitations: no limitations Patient Subjective Stated Complaint: C/O vomitting X 1 week. States she has been completely unable to eat for the past 3 days. Triage Nursing Assessment: Patient ambulated back to ER without difficulties. She is alert and oriented. NO SOB. Nasal congestion noted. Patient denies any pain, cramping, or vaginal bleeding. Skin tone normal. ALLRED WNL. Unable to obtain heart tones with hand held doppler at this time; attempted but unsuccessful. Physician History: 23-year-old 2 para 1 at 13 weeks gestation presented in the ER with chief complaint of nausea vomiting for the last 3 days with inability to hold anything down. Patient reports having multiple episodes of nonprojectile, no nbilious vomiting without hematemesis. Denies associated abdominal pain, pelvic cramping, vaginal bleeding or discharge. No fever or chills reported. She has been taking Zofran with no significant relief. Feels weak fatigued tired and dehydrated. Patient has a positive contact with influenza and the family. Allergies/Adverse Reactions: No Known Drug Allergies Allergy (Verified 11/10/23 10:04) Home Medications: Vit No.179/Iron/Folic [ Tablet] 1 tab PO DAILY 11/10/23 [History] Hx Tetanus, Diphtheria Vaccination/Date Given: Yes Hx Influenza Vaccination/Date Given: Yes Hx Pneumococcal Vaccination/Date Given: No Immunizations Up to Date: Yes Travel Risk - International Travel Have you traveled outside of the country in past 3 weeks: No - Coronavirus Screening Are you exhibiting any of the following symptoms?: No Close contact with a COVID-19 positive Pt in past 14-21 Days: No - Vaccine Status Have you recieved a Covid-19 vaccination: No - Review of Systems Constitutional: Fatigue, Weakness Eyes: No Symptoms Ears, Nose, & Throat: No Symptoms Respiratory: No Symptoms Cardiac: No Symptoms Abdominal/Gastrointestinal: Nausea, Vomiting Genitourinary Symptoms: Musculoskeletal: No Symptoms Skin: No Symptoms Neurological: No Symptoms Endocrine: No Symptoms Hematologic/Lymphatic: No Symptoms - Past Medical History Pertinent Past Medical History: Yes Neurological History: No Pertinent History ENT History: No Pertinent History Cardiac History: Arrhythmia, Other Respiratory History: No Pertinent History Endocrine Medical History: No Pertinent History Musculoskeletal History: No Pertinent History GI Medical History: No Pertinent History History: No Pertinent History Psycho-Social History: No Pertinent History Female Reproductive Disorders: No Pertinent History Other Medical History: atrial septal defect. 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 - Past Surgical History Past Surgical History: Yes Neuro Surgical History: No Pertinent History Cardiac: Cardiac Catheterization Respiratory: Other Gastrointestinal: Appendectomy Genitourinary: No Pertinent History Musculoskeletal: No Pertinent History Female Surgical History: Section Other Surgical History: nov 28--put in a device - Social History Smoking Status: Never smoker Exposure to second hand smoke: No Alcohol Use: None Drug Use: none Patient Lives Alone: No Significant Family History: no pertinent family hx - Female History Hx Now: Yes Gestational Age: 13 weeks - Nursing Vital Signs Nursing Vital Signs: Initial Vital Signs Temperature 97.9 F 11/10/23 10:05 Pulse Rate 103 H 11/10/23 10:05 Respiratory Rate 20 11/10/23 10:05 Blood Pressure 153/95 11/10/23 10:05 O2 Sat by Pulse Oximetry 98 11/10/23 10:05 Pain Scale Pain Intensity 0 - Physical Exam General Appearance: no apparent distress, alert Eye Exam: PERRL/EOMI Ears, Nose, Throat Exam: normal ENT inspection Neck Exam: normal inspection, non-tender, supple, full range of motion Respiratory Exam: normal breath sounds, lungs clear Cardiovascular Exam: regular rate/rhythm, normal heart sounds Gastrointestinal/Abdomen Exam: soft, normal bowel sounds, No tenderness, No di stention, No guarding Back Exam: normal inspection Extremity Exam: normal inspection, normal range of motion Neurologic Exam: alert, 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, cooperative, 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 Skin Exam: normal color SpO2 Interpretation: normal SpO2: 98 O2 Delivery: Room Air Ordered Tests: Active Orders 24 hr Category Date Time Status Heart Tones-ED STAT Care 11/10/23 11:58 Active IV Insertion STAT Care 11/10/23 10:11 Active CBC W DIFF Stat Lab 11/10/23 10:20 Completed CMP Stat Lab 11/10/23 10:20 Completed CULTURE,URINE Stat Lab 11/10/23 10:16 Received LIPASE Stat Lab 11/10/23 10:20 Completed UA W/RFX UR CULTURE Stat Lab 11/10/23 10:16 Completed Medication Summary Generic Name Dose Route Start Last Admin Trade Name Freq PRN Reason Stop Dose Admin Sodium Chloride 500 mls @ 500 mls/hr 11/10/23 11:47 11/10/23 11:54 Sodium Chloride 0.9% 500 Ml IV 11/10/23 12:46 500 mls/hr .Q1H ONE Administration Discontinued Medications Generic Name Dose Route Start Last Admin Trade Name Freq PRN Reason Stop Dose Admin Cephalexin HCl 500 mg 11/10/23 11:48 11/10/23 11:54 Cephalexin Mh500 Mg Capsule PO 11/10/23 11:49 500 mg STAT ONE Administration Cephalexin HCl Confirm 11/10/23 11:51 Cephalexin Mh500 Mg Capsule Administered 11/10/23 11:52 Dose 500 mg .ROUTE .STK-MED ONE Sodium Chloride 1,000 mls @ 999 mls/hr 11/10/23 10:11 11/10/23 11:38 Sodium Chloride 0.9% 1000 Ml IV 11/10/23 11:11 Infused .Q1H1M STA Infusion Sodium Chloride Confirm 11/10/23 10:35 Sodium Chloride 0.9% 1000 Ml Administered 11/10/23 10:36 Dose 1,000 mls @ ud .ROUTE .STK-MED ONE Sodium Chloride Confirm 11/10/23 11:51 Sodium Chloride 0.9% 500 Ml Administered 11/10/23 11:52 Dose 500 mls @ ud IV .STK-MED ONE Ondansetron HCl 4 mg 11/10/23 10:13 11/10/23 10:39 Ondansetron Hcl 4 Mg/2 Ml Vial IV 11/10/23 10:14 4 mg STAT ONE Administration Ondansetron HCl Confirm 11/10/23 10:35 Ondansetron Hcl 4 Mg/2 Ml Vial Administered 11/10/23 10:36 Dose 4 mg .ROUTE .STK-MED ONE Lab/Rad Data: Laboratory Result Diagrams 11/10/23 10:20 11/10/23 10:20 Laboratory Results 11/10/23 11/10/23 11/10/23 Range/Units 10:35 10:20 10:20 WBC 8.6 (4.0-10.5) x10^3/uL RBC 4.73 (4.1-5.4) x10^6/uL Hgb 13.3 (12.0-16.0) g/dL Hct 39.8 (35-47) % MCV 84.1 (78-100) fL MCH 28.1 (26-32) pg MCHC 33.4 (32-36) g/dL RDW 12.9 (11.5-14.0) % Plt Count 278 (150-450) x10^3/uL MPV 10.8 (7.5-11.0) fL Gran % 76.4 H (36.0-66.0) % Immature Gran % (Auto) 0.2 (0.00-0.4) % Nucleat RBC Rel Count 0.0 (0.00-0.1) % Eos # (Auto) 0.03 (0-0.5) x10^3/uL Immature Gran # (Auto) 0.02 (0.00-0.03) x10^3u/L Absolute Lymphs (auto) 1.53 (1.0-4.6) x10^3/uL Absolute Monos (auto) 0.42 (0.0-1.3) x10^3/uL Absolute Nucleated RBC 0.00 (0.00-0.01) x10^3u/L Lymphocytes % 17.9 L (24.0-44.0) % Monocytes % 4.9 (0.0-12.0) % Eosinophils % 0.4 (0.00-5.0) % Basophils % 0.2 (0.0-0.4) % Absolute Granulocytes 6.54 (1.4-6.9) x10^3/uL Basophils # 0.02 (0-0.4) x10^3/uL Sodium 134 L (137-145) mmol/L Potassium 3.3 L (3.5-5.1) mmol/L Chloride 106 (98-107) mmol/L Carbon Dioxide 19 L (22-30) mmol/L Anion Gap 12.4 (5-15) MEQ/L BUN 9 (7-17) mg/dL Creatinine 0.49 L (0.52-1.04) mg/dL Estimated GFR 134.9 ML/MIN Glucose 96 (74-106) mg/dL Calcium 9.4 (8.4-10.2) mg/dL Total Bilirubin 1.80 H (0.2-1.3) mg/dL AST 24 (14-36) U/L ALT 23 (0-35) U/L Alkaline Phosphatase 60 (38-126) U/L Serum Total Protein 7.5 (6.3-8.2) g/dL Albumin 4.3 (3.5-5.0) g/dL Lipase 52 (23-300) U/L Urine Color (Yellow) Urine Appearance (Clear) Urine pH (4.6-8.0) Ur Specific [place] (1.005-1.030) Urine Protein (Negative) Urine Glucose (UA) (Negative) mg/dL Urine Ketones (Negative) Urine Blood (Negative) Urine Nitrite (Negative) Urine Bilirubin (Negative) Urine Urobilinogen (0.2) mg/dL Ur Leukocyte Esterase (Negative) U Hyaline Cast (Auto) (0-2) /LPF Urine Microscopic RBC (0-5) /HPF Urine Microscopic WBC (0-5) /HPF Ur Epithelial Cells (None Seen) /HPF Urine Bacteria (None Seen) /HPF Urine Mucus (NEGATIVE) /HPF Urine Yeast (Budding) (None Seen) /HPF Urine Culture Reflexed (NO) Influenza Type A Ag NEGATIVE (NEGATIVE) Influenza Type B Ag POSITIVE (NEGATIVE) RSV (PCR) NEGATIVE (NEGATIVE) SARS-CoV-2 (PCR) NEGATIVE (NEGATIVE) 11/10/23 Range/Units 10:16 WBC (4.0-10.5) x10^3/uL RBC (4.1-5.4) x10^6/uL Hgb (12.0-16.0) g/dL Hct (35-47) % MCV (78-100) fL MCH (26-32) pg MCHC (32-36) g/dL RDW (11.5-14.0) % Plt Count (150-450) x10^3/uL MPV (7.5-11.0) fL Gran % (36.0-66.0) % Immature Gran % (Auto) (0.00-0.4) % Nucleat RBC Rel Count (0.00-0.1) % Eos # (Auto) (0-0.5) x10^3/uL Immature Gran # (Auto) (0.00-0.03) x10^3u/L Absolute Lymphs (auto) (1.0-4.6) x10^3/uL Absolute Monos (auto) (0.0-1.3) x10^3/uL Absolute Nucleated RBC (0.00-0.01) x10^3u/L Lymphocytes % (24.0-44.0) % Monocytes % (0.0-12.0) % Eosinophils % (0.00-5.0) % Basophils % (0.0-0.4) % Absolute Granulocytes (1.4-6.9) x10^3/uL Basophils # (0-0.4) x10^3/uL Sodium (137-145) mmol/L Potassium (3.5-5.1) mmol/L Chloride (98-107) mmol/L Carbon Dioxide (22-30) mmol/L Anion Gap (5-15) MEQ/L BUN (7-17) mg/dL Creatinine (0.52-1.04) mg/dL Estimated GFR ML/MIN Glucose (74-106) mg/dL Calcium (8.4-10.2) mg/dL Total Bilirubin (0.2-1.3) mg/dL AST (14-36) U/L ALT (0-35) U/L Alkaline Phosphatase (38-126) U/L Serum Total Protein (6.3-8.2) g/dL Albumin (3.5-5.0) g/dL Lipase (23-300) U/L Urine Color Dark Yellow A (Yellow) Urine Appearance Cloudy A (Clear) Urine pH 6.0 (4.6-8.0) Ur Specific [place] >=1.030 A (1.005-1.030) Urine Protein 30 (Negative) Urine Glucose (UA) Negative (Negative) mg/dL Urine Ketones >=160 A (Negative) Urine Blood Negative (Negative) Urine Nitrite Negative (Negative) Urine Bilirubin Moderate A (Negative) Urine Urobilinogen 1.0 A (0.2) mg/dL Ur Leukocyte Esterase Small A (Negative) U Hyaline Cast (Auto) 0-2 (0-2) /LPF Urine Microscopic RBC 3-5 (0-5) /HPF Urine Microscopic WBC 11-20 A (0-5) /HPF Ur Epithelial Cells Many A (None Seen) /HPF Urine Bacteria Few A (None Seen) /HPF Urine Mucus Moderate A (NEGATIVE) /HPF Urine Yeast (Budding) (None Seen) /HPF Urine Culture Reflexed YES (NO) Influenza Type A Ag (NEGATIVE) Influenza Type B Ag (NEGATIVE) RSV (PCR) (NEGATIVE) SARS-CoV-2 (PCR) (NEGATIVE) - Progress Progress: improved, re-examined Progress Note: 11/10/23 12:38 23 years old 2 para 1 is evaluated in the ER for nausea vomiting for the last 3 days. Patient reports she has been feeling aches and pains since last /7 days ago. She is given fluid bolus x 2, on reevaluation she is feeling much better. She is given IV Zofran and no vomiting while in the ER. Workup showed normal white count, chemistries show mildly low potassium at 3.3 and bilirubin of 1.8. Patient has positive influenza. Elevation in bilirubin could be secondary to viral infection and less likely cholestasis of at this gestational age. She has heart tones in 160s. No vaginal bleeding cramping. Does have some element of UTI and started on Keflex. Discussed with patient about Tamiflu and she does not want to have it. I would give her Phenergan to take as needed for nausea vomiting and recommended increase hydration. At this point I do not think she needs any other workup and is being discharged with outpatient follow-up with primary care and OB. Discussed signs symptoms of worsening needing return to ER which she seems understanding. Stable for discharge home Counseled pt/family regarding: lab results, diagnosis, need for follow-up Medical Desision Making - Diagnostic Testing Diagnostic test were ordered, analyzed, and reviewed by me: Yes - Risk of complications The pt has a mod risk of morbidity or mortality based on: Need for prescription drug management - Departure Departure Disposition: Home Clinical Impression: Nausea & vomiting, , UTI in , Influenza B Condition: Stable Critical Care Time: No Referrals: PHYLLIS MACIEL MD [Primary Care Provider] - Follow up with PCP 1 day Instructions: Flu, Adult (DC), Hyperemesis Gravidarum (DC) Additional Instructions: Alternate Phenergan with Zofran for nausea and vomiting. Drink plenty of fluids to keep yourself well-hydrated. Take Tylenol as needed only. Follow-up with your primary care/OB for reevaluation and also recheck of bilirubin level. Return to ER for intractable vomiting, fever, abdominal pain, vaginal bleeding/cramping or discharge etc. Prescriptions: Promethazine HCl 25 mg [Phenergan 25 mg] 25 mg PO Q8H PRN PRN 5 Days #14 tablet PRN Reason: Vomiting
[2023-11-10 13:02] VITALS: BP 132/80; PULSE 88; O2SAT 97
== END 2023-11-10 13:12 | disposition home or self-care (01) ==
LOC: ED 09:53
DX: O23.41 Unspecified infection of urinary tract in pregnancy, first trimester (principal); N39.0 Urinary tract infection, site not specified; O21.9 Vomiting of pregnancy, unspecified; O99.511 Diseases of the respiratory system complicating pregnancy, first trimester; Z3A.13 13 weeks gestation of pregnancy; J10.1 Influenza due to other identified influenza virus with other respiratory manifestations; R53.1 Weakness; R53.83 Other fatigue; Z28.310 Unvaccinated for COVID-19
CPT/HCPCS: 0241U; 36000; 36415; 80053; 81001; 83690; 85025; 87086; 96374; 99284; J2405; A9270-GY